=== PATIENT | female | born 1950 | race Caucasian/White ===

== ENCOUNTER 2021-09-26 11:04 | Day surgery (SDC) | payer OTHER ==
[2021-09-22 14:07] LABS: Absolute Lymphocytes (CBC) 3.2 K/uL (0.7-4.9); Basophils % 0.4 % (0-1.3); Hematocrit 32.3 % (36.0-45.0); Lymphocytes % 38.6 % (15.3-44.8); RBC Red Blood Cell Count 3.66 M/uL (3.86-4.86)
[2021-09-22 14:28] LABS: Albumin 3.7 g/dL (3.4-5.0); Bilirubin Direct 0.1 mg/dL (0-0.2); Bilirubin Total 0.3 mg/dL (0.2-1.0); Potassium 4.1 mmol/L (3.5-5.1); Protein, Total 7.4 g/dL (6.4-8.2)
--- NOTE | 2021-09-22 14:33 | RAD REPORT ---
EXAM DESCRIPTION: RAD - Chest Pa And Lat (2 Views) - 09/22/2021 2:15 pm CLINICAL HISTORY: PREOP, pending cholecystectomy COMPARISON: None TECHNIQUE: Frontal and lateral views of the chest were obtained. FINDINGS: The lungs are clear of a suspicious mass or infiltrate. Calcified granuloma seen in the la teral left upper lung field. No hilar mass or lymphadenopathy seen. Granulomas also seen in the media l left base. Trachea is midline. Heart size is normal and central vasculature is within normal limi ts. No pleural effusion or pneumothorax seen. No acute bony finding noted. No aortic abnormality. IMPRESSION: No acute cardiopulmonary process.
[2021-09-26] MEDS ORDERED: Ringers Lactate 1,000 ML IV ONE (11:23)
[2021-09-26] MEDS ORDERED: CEFOXITIN/NS 1gm 1 GM/50 ML BAG ONE (11:24)
[2021-09-26] MEDS ORDERED: ACETAMINOPHEN 500 MG TAB ONE (11:47)
[2021-09-26] MEDS ORDERED: CELECOXIB 100 MG CAPSULE ONE (11:47)
[2021-09-26] MEDS ORDERED: propofoL 200 MG/20 ML VIAL IV ONE ×2 (12:38→13:10)
[2021-09-26] MEDS ORDERED: ROCURONIUM 50 MG/5 ML VIAL IV ONE ×2 (12:38→13:10)
[2021-09-26] MEDS ORDERED: FENTANYL CITR 100 MCG/2 ML ONE ×2 (12:38→13:09)
[2021-09-26] MEDS ORDERED: dexAMETHasone 4 MG/ML VIAL ONE (12:39)
[2021-09-26] MEDS ORDERED: LIDOCAINE 2% MPF 5 ML VIAL ONE (12:39)
[2021-09-26] MEDS ORDERED: ONDANSETRON 4 MG/2 ML VIAL ONE (12:39)
[2021-09-26] MEDS ORDERED: MIDAZOLAM HCL 2 MG/2 ML INJ ONE (13:09)
[2021-09-26] MEDS ORDERED: LIDOCAINE 1% MPF 2 ML AMPULE ONE (13:09)
[2021-09-26] MEDS ORDERED: BUPIVACAINE 0.5% Inj,MDV 50 mL VIAL ONE (13:29)
[2021-09-26] MEDS ORDERED: GLYCOPYRROLATE 0.2 MG/ML SYR ONE (14:24)
[2021-09-26] MEDS ORDERED: NEOSTIGMINE 1 MG/ML -5 ML ONE (14:25)
[2021-09-26] MEDS ORDERED: Mastisol Adhesive Liq ONE (14:33)
--- NOTE | 2021-09-26 14:33 | P.BOP ---
Preoperative diagnosis: Acute cholecystitis, sympt cholelithiasis, RUQ abd pain Postoperative diagnosis: same Primary procedure: Laparoscopic cholecystectomy Estimated blood loss: <10cc Specimen: gb Findings: as above Anesthesia: General Transferred to: Recovery Room Condition: Good
[2021-09-26] MEDS: HYDROMORPHONE HCL 1 MG/ML INJ ONE ×2 (15:03→15:08)
[2021-09-26] MEDS ORDERED: ONDANSETRON 4 MG (ODT) TAB PO ONE (16:20)
[2021-09-26] MEDS ORDERED: ONDANSETRON 4 MG (ODT) TAB ONE (16:25)
[2021-09-26 16:51] VITALS: BP 125/83; TEMP 97.6; O2SAT 99
--- NOTE | 2021-09-27 13:27 | OP ---
Date of Procedure: 09/26/2021 Surgeon: Job Bajwa MD Preoperative Diagnoses: Acute cholecystitis, symptomatic cholelithiasis, right upper quadrant abdomi nal pain. Postoperative Diagnoses: Acute cholecystitis, symptomatic cholelithiasis, right upper quadrant abdom inal pain. Procedure: Laparoscopic cholecystectomy. Estimated Blood Loss: Less than 10 cc. Specimen: Gallbladder. Anesthesia: General plus local. Indication: This is the case of a female, who comes to us with above diagnoses. Fully explained the benefits, alternatives, and risks of laparoscopic possible open cholecystectomy, which include, but not limited to infection, bleeding, damage to adjacent structures, anesthesia complication, choledoch olithiasis, bile leak, pancreatitis, MT, and even . She also understands this may not relieve a ny symptoms. She might need more than one surgical intervention. She understood, signed a consent. Procedure In Detail: The patient was brought to the operating room and placed in supine position. A nesthesia was done without complication. Abdominal area was prepped and draped in usual sterile fash ion. Marcaine 0.5% was injected for local anesthetic followed by sharp incision of the skin in the i nfraumbilical region. Incision was carried down to fascia, which was opened under direct vision. Pe ritoneum was encountered, opened under direct vision. Vicryl #1 placed inside the fascia. Eda tr ocar was carefully introduced. Pneumoperitoneum was obtained. I placed 1 trocar and the 5 mm trocar in the epigastric area. From that, I used Endo Татьяна connected to Bovie cauterizer since the patie nt has multiple adhesions in that area and had to remove adhesions in order for me to be able to see the gallbladder. When we had adhesions removed, we were able to put 2 more trocars, 5 mm each one of them in the right upper quadrant under direct visualization. This allowed me to put a grasper in th e fundus of the gallbladder, another grasper in the infundibulum, retracting the gallbladder in the i nferolateral fashion, exposing the triangle of Calot and obtaining critical view. Cystic duct and cy stic artery were clearly isolated, freed circumferentially and a connection between those and the gal lbladder was clearly identified. I proceeded to ligate those by using at least 3 clips proximal, 1 c lip distal, ligation in middle. Same was done with the cystic artery. No bile leak, no bleeding. T he gallbladder was removed from liver using Bovie cauterizer and removed from abdominal cavity using EndoCatch through the umbilical incision. The area was inspected once again. No bile leak, no bleed ing. The area of adhesions was also intact with no bleeding. At that moment, I proceeded to remove the trocars under direct vision. Deflated the pneumoperitoneum. Closed the fascia with #1 Vicryl. Irrigated subcutaneous tissue, closed that with 3-0 chromic and skin in a subcuticular fashion with 3 -0 chromic and Steri-Strips on top. Sponge count and instrument counts correct. The patient tolerat ed the procedure well. The patient was sent to recovery in stable condition. CHRIS/CHAD Voice ID: [id number] Report ID: [id number]
--- NOTE | 2021-09-27 13:39 | DS ---
Date of Discharge: 09/26/2021 Diagnoses: Acute cholecystitis, symptomatic cholelithiasis, right upper quadrant abdominal pain. Procedure: Laparoscopic cholecystectomy. Disposition: Home. Activity: As tolerated. No heavy lifting. Plan: Follow up in my office in 1 week. Call for appointment at [phone]. Keep area dry for 48 denzel rs, then may shower. Keep Steri-Strips intact. Medications: See orders. CHRIS/MODAnabella Voice ID: [id number] Report ID: [id number]
== END 2021-09-26 16:48 | disposition home or self-care (01) ==
LOC: OR 11:04
PROVIDERS: ATTEND Surgery
PROC: 0FT44ZZ Resection of Gallbladder, Percutaneous Endoscopic Approach (ICD-10-PCS; principal; 2021-09-26 12:45)
DX: K80.10 Calculus of gallbladder with chronic cholecystitis without obstruction (principal); R10.11 Right upper quadrant pain; Z20.822 Contact with and (suspected) exposure to COVID-19
CPT/HCPCS: 93005; 85025; 80048; 36415; 82150; 80076; 88304; 83690; 71046; 47562; U0003; J2704; J1100; J3010; J1170; J2710; J7120; J0694; J2405; J2250

== ENCOUNTER 2024-01-31 21:56 | Inpatient (IN) | payer OTHER ==
--- OUTSIDE RECORDS SUMMARY | 2024-01-31 22:00 | XMS REPORT | Continuity of Care Document ---
Author Name Unknown Address [address] [facility] [address] [place] [address] [facility] Address [address] [facility] [address] [place] [address] Care Team Providers Care Developer Automatic Name Role Phone Andrade Longo Attending Clinician Unavailable Sandra Johnson Attending Clinician Unavailable Physician, No Primary or Family Admitting Clinic pat Unavailable Sandra Johnson Admitting Clinician Unavailable Payers Payer Name Policy Type Policy Number Effective Date Expirati on Date Source Allergies, Adverse Reactions, Alerts Allergy Name Allergy Type Status Severity Reaction(s) Onset Date Inactive Date Treating Clinician Comments Source No Known Allergie s DA Active U 01-03 00:00: 00 [facility] No Known Allergie s DA Active U 01-03 00:00: 00 [facility] Procedures Procedure Date / Time Performed Performing Clinicia n Source [id number] 2021-01-05 00:00:00 RASSA [facility] [id number] 2021-01-05 00:00:00 ALDMO [facility] Encounters Start Date/Time End Date/Time Encounter Type Admission Type Attending Clinicians Care Facility Care Department Encounter ID Source 2021-01-09 10:05:18 Inpatient EM Andrade Longo [facility] [id number] [facility] 2023-04-26 12:00:00 2023-04-26 12:00:00 Outpatient Sandra Perez [facility] [id number] [facility] 2022-04-25 12:00:00 2022-04-25 12:00:00 Outpatient Sandra Perez [facility] [id number] [facility] 2021-04-21 12:00:00 2021-04-21 12:00:00 Outpatient Sandra Perez [facility] [id number] [facility] 2021-02-23 05:17:00 2021-02-23 05:17:00 Inpatient Andrade Salas [facility] [id number] [facility] 2020-04-05 12:00:00 2020-04-05 12:00:00 Outpatient Sandra Perez [facility] [id number] [facility] Results Test Description Test Time Test Comments Results Result Co mments Source BASIC METABOLIC [id number] 11:34:00* Test Item Value Reference Range Interpretation Comme nts SODIUM (test code = NA) 140 mEq/L 134-147 N POTASSIUM (test code = K) 4.2 mEq/L 3.4-5.0 N CHLORIDE (test code = CL) 104 mEq/L 100-108 N CARBON DIOXIDE (test code = CO2) 31 mEq/l 21-33 N ANION GAP (test code = GAP) 9 0-20 N GLUCOSE (test code = GLU) 93 mg/dL 70-110 N BLOOD UREA NITROGEN (test code = BUN) 10 mg/dL 7-18 N GLOMERULAR FILTRATION RATE (test code = GFR) 61.9 70-80 L Units of measure = ml/min/1.73 m2 CREATININE (test code = CREAT) 0.9 mg/dL 0.6-1.3 N CALCIUM (test code = CA) 10.0 mg/dL 8.0-10.5 N PROTHROMBIN [id number] 11:33:00* Test Item Value Reference Range Interpretation Comme nts PROTHROMBIN TIME PATIENT (test code = PTP) 15.6 SECONDS 9.3-12.9 H INTERNATIONAL NORMAL RATIO (test code = INR) 1.4 0.8-1.2 H TARGET INR BY INDICATION Indication INR1. Prophylaxis of venous thrombosis 2.0 - 3.0 (orthopedic surgery), Prophylaxis of venous thrombosis (other than high-risk surgery), Treatment of Deep Vein Thrombosis/Pulmonary Embolism, Prevention of systemic embolism - Tissue heart valves, Acute Myocardial Infarction (to prevent systemic embolism), Valvular heart disease, Atrial Fibrillation, Bileaflet mechanical valve in aortic position.2. Mechanical prosthetic valves (high risk), 2.5 - 3.5 Presence of Lupus Anticoagulant or Antiphospholipid Antibodies, Prevention of systemic embolism - Acute Myocardial Infarction (to prevent recurrent infarct). CBC W/AUTO [id number] 11:21:00* Test Item Value Reference Range Interpretation Comme nts WHITE BLOOD CELL (test code = WBC) 7.2 x10 3/uL 4.5-11.0 N RED BLOOD CELL (test code = RBC) 3.80 x10 6/uL 3.54-5.02 N HEMOGLOBIN (test code = HGB) 11.2 g/dL 11.0-15.0 N HEMATOCRIT (test code = HCT) 35.6 % 33.0-45.0 N MEAN CELL VOLUME (test code = MCV) 93.7 fL 81.0-99.0 N MEAN CELL HGB (test code = MCH) 29.5 pg 27.0-33.0 N MEAN CELL HGB CONCETRATION (test code = MCHC) 31.5 g/dL 33.0-37.0 L RED CELL DISTRIBUTION WIDTH CV (test code = RDW) 12.8 % 11.5-14.5 N RED CELL DISTRIBUTION WIDTH SD (test code = RDW-SD) 44.3 fL 37.0-54.0 N PLATELET COUNT (test code = PLT) 242 x10 3/uL 150-400 N MEAN PLATELET VOLUME (test c ode = MPV) 8.6 fL 7.0-9.0 N NEUTROPHIL % (test code = NT%) 55.2 % 56.0-77.0 L IMMATURE GRANULOCYTE % (test code = IG%) 0.4 % 0.0-2.0 N LYMPHOCYTE % (test code = LY%) 34.3 % 14.0-32.0 H MONOCYTE % (test code = MO%) 7.9 % 4.8-9.0 N EOSINOPHIL % (test code = EO%) 1.9 % 0.3-3.7 N BASOPHIL % (test code = BA%) 0.3 % 0.0-2.0 N NUCLEATED RBC % (test code = NRBC%) 0.0 % 0-0 N NEUTROPHIL # (test code = NT#) 3.96 x10 3/uL 2.0-7.6 N IMMATURE GRANULOCYTE # (test code = IG#) 0.03 x10 3/uL 0.00-0.03 N LYMPHOCYTE # (test code = LY#) 2.46 x10 3/uL 1.0-3.8 N MONOCYTE # (test code = MO#) 0.57 x10 3/uL 0.1-0.8 N EOSINOPHIL # (test code = EO#) 0.14 x10 3/uL 0.0-0.2 N BASOPHIL # (test code = BA#) 0.02 x10 3/uL 0.0-0.2 N NUCLEATED RBC # (test code = NRBC#) 0.00 x10 3/uL 0.0-0.1 N MANUAL DIFF REQUIRED (test c ode = MDIFF) NO CBC W/AUTO [id number] 10:08:00* Test Item Value Reference Range Interpretation Comme nts WHITE BLOOD CELL (test code = WBC) 10.5 x10 3/uL 4.5-11.0 N RED BLOOD CELL (test code = RBC) 3.21 x10 6/uL 3.54-5.02 L HEMOGLOBIN (test code = HGB) 9.7 g/dL 11.0-15.0 L HEMATOCRIT (test code = HCT) 29.5 % 33.0-45.0 L MEAN CELL VOLUME (test code = MCV) 91.9 fL 81.0-99.0 N MEAN CELL HGB (test code = MCH) 30.2 pg 27.0-33.0 N MEAN CELL HGB CONCETRATION (test code = MCHC) 32.9 g/dL 33.0-37.0 L RED CELL DISTRIBUTION WIDTH CV (test code = RDW) 12.7 % 11.5-14.5 N RED CELL DISTRIBUTION WIDTH SD (test code = RDW-SD) 43.0 fL 37.0-54.0 N PLATELET COUNT (test code = PLT) 195 x10 3/uL 150-400 N MEAN PLATELET VOLUME (test c ode = MPV) 8.6 fL 7.0-9.0 N NEUTROPHIL % (test code = NT%) 71.9 % 56.0-77.0 N IMMATURE GRANULOCYTE % (test code = IG%) 0.4 % 0.0-2.0 N LYMPHOCYTE % (test code = LY%) 20.7 % 14.0-32.0 N MONOCYTE % (test code = MO%) 6.4 % 4.8-9.0 N EOSINOPHIL % (test code = EO%) 0.4 % 0.3-3.7 N BASOPHIL % (test code = BA%) 0.2 % 0.0-2.0 N NUCLEATED RBC % (test code = NRBC%) 0.0 % 0-0 N NEUTROPHIL # (test code = NT#) 7.57 x10 3/uL 2.0-7.6 N IMMATURE GRANULOCYTE # (test code = IG#) 0.04 x10 3/uL 0.00-0.03 H LYMPHOCYTE # (test code = LY#) 2.18 x10 3/uL 1.0-3.8 N MONOCYTE # (test code = MO#) 0.67 x10 3/uL 0.1-0.8 N EOSINOPHIL # (test code = EO#) 0.04 x10 3/uL 0.0-0.2 N BASOPHIL # (test code = BA#) 0.02 x10 3/uL 0.0-0.2 N NUCLEATED RBC # (test code = NRBC#) 0.00 x10 3/uL 0.0-0.1 N MANUAL DIFF REQUIRED (test c ode = MDIFF) NO BASIC METABOLIC [id number] 09:48:00* Test Item Value Reference Range Interpretation Comme nts SODIUM (test code = NA) 133 mEq/L 134-147 L POTASSIUM (test code = K) 3.7 mEq/L 3.4-5.0 N CHLORIDE (test code = CL) 101 mEq/L 100-108 N CARBON DIOXIDE (test code = CO2) 27 mEq/l 21-33 N ANION GAP (test code = GAP) 9 0-20 N GLUCOSE (test code = GLU) 147 mg/dL 70-110 H BLOOD UREA NITROGEN (test code = BUN) 10 mg/dL 7-18 N GLOMERULAR FILTRATION RATE (test code = GFR) 71.1 80-90 L Units of measure = ml/min/1.73 m2 CREATININE (test code = CREAT) 0.8 mg/dL 0.6-1.3 N CALCIUM (test code = CA) 8.7 mg/dL 8.0-10.5 N - XR CHEST 1 [id number] 09:36:00 [facility] : 1950 Sex: F FAX: Vicki Gilliland [phone] [place]: St: ADM FAX: Thao Jonas MD [phone] FAX: Sandra Caban MD [phone] FAX: Andrade Obrien MD [phone] Name: MADELIN PIERRE [facility] : 1950 Age/S: 70/F [address] [place] [address] Unit #: [id number] Loc: G.3343 [place] [address] Phys: Vicki Gilliland [facility] Acct: [id number] Dis Date: Status: ADM IN PHONE #: [phone] Exam Date: 01/06 FAX #: [phone] Reason: POST WATCHMAN EXAMS: CPT CODE: [id number] XR CHEST 1 V [id number] HISTORY:POST WATCHMAN COMPARISON:January 03, 2021 Frontal film of the chest performed at 0514 on January 06, 2021 demonstrates a watch measuring device for atrial fibrillation in left atrial region. Heart size is normal. Lung saravia are clear. No evidence of pneumonia or congestive failure isnoted. Calcified granulomas are present in the left lung. IMPRESSION: No evidence of pneumonia or congestive failure is seen. at 0936 Reported and signed by: Hernan Pham M.D. CC: Vicki Gilliland; Thao Guerrero MD; Sandra Johnson M.D.; Andrade Longo MD Technologist: Nohemy Núñez, RT(R); Bee Dos Santos RT(R) Trnscrd Date/Time/By: 01/06/2021 (0936) : By: Leonid Orig Print D/T: S: 01/06/2021 (0914) PAGE 1 Signed ReportCBC W/AUTO [id number] 09:31:00* Test Item Value Reference Range Interpretation Comme nts WHITE BLOOD CELL (test code = WBC) x10 3/uL 4.5-11.0 RED BLOOD CELL (test code = RBC) x10 6/uL 3.54-5.02 HEMOGLOBIN (test code = HGB) g/dL 11.0-15.0 HEMATOCRIT (test code = HCT) % 33.0-45.0 MEAN CELL VOLUME (test code = MCV) fL 81.0-99.0 MEAN CELL HGB (test code = MCH) pg 27.0-33.0 MEAN CELL HGB CONCETRATION ( test code = MCHC) g/dL 33.0-37.0 RED CELL DISTRIBUTION WIDTH CV (test code = RDW) % 11.5-14.5 PLATELET COUNT (test code = PLT) 195 x10 3/uL 150-400 N NEUTROPHIL % (test code = NT%) % 56.0-77.0 LYMPHOCYTE % (test code = LY%) % 14.0-32.0 NEUTROPHIL # (test code = NT#) x10 3/uL 2.0-7.6 LYMPHOCYTE # (test code = LY#) x10 3/uL 1.0-3.8 MANUAL DIFF REQUIRED (test c ode = MDIFF) [id number] 15:20:00* Test Item Value Reference Range Interpretation Comme nts ACT-ISTAT (test code = ACTI) 296 SEC 74-137 H Performed by cer clementina extrusion press operator at [facility] Novel Coronavirus 2019 [id number] 21:42:00* Test Item Value Reference Range Interpretation Comme nts Novel Coronavirus 2019 Inhouse (test code = COVNONPUI) Negative Negative Positive resul ts are indicative of the presence ycZNAU-MiD-3 RNA, clinical correlation with patient historyand other diagnostic information is necessary to determinepatient infection status. Positive results do not rule outbacterial infection or co-infection with other viruses. Negative results do not preclude SARS-CoV-2 infection andshould not be used as the sole basis for patient managementdecisions. Negative results must be combined with otherclinical observations, patient history, and epidemiologicalinformation . Detection of SARS-CoV-2 RNA may be affected bysample collection methods, storage conditions, and/or stageof infection. Viral RNA mutations, vaccinations, antiviraltherapeutics, antibiotics, chemotherapeutic orimmunosuppressant drugs have not been evaluated for effectson detection. Results are for the identification of SARS-CoV-2 RNA usingthe [employer] M2000 System under the FDA Emergency UseAuthorization. The testing is performed by personneltrained in the procedures for the [employer]va M2000 moleculardiagnostic SARS-CoV-2 assay in vitro. - XR CHEST 2 [id number] 13:53:00 [facility] : 1950 Sex: F FAX: Sandra Caban MD [phone] [place]: St: PRE FAX: Y Andrade Longo MD [phone] ------ Name: MADELIN PIERRE [facility] : 1950 Age/S: 70/F [address] [place] [address] Unit #: [id number] Loc: [place] [address] Phys: Andrade Longo MD Acct: [id number] Dis Date: Status: PRE [facility] [place] PHONE #: [phone] Exam Date: 01/03/20211452 FAX #: [phone] Reason: PRE-OP WATCHMAN EXAMS: CPT CODE: [id number] XR CHEST 2 V 07764 CLINICAL HISTORY: PRE-OP WATCHMAN COMPARISON: NONE PA and lateral films of the chest demonstrate that heart size is normal. Lung saravia demonstrate no evidence of pneumonia or congestive failure. Calcified granulomas are present in the left lung. Regional skeletal structures d emonstrate no acute abnormality. IMPRESSION: No evidence of pneumonia or congestive failure is seen. at 1353 Reported and signed by: Hernan Pham M.D. CC: Sandra Johnson M.D.; Andrade Longo MD Technologist: RT Leticia(Sarah) Trnscrd Date/Time/By: 01/03/2021 (1728) : By: ChrisYOCj Orig Print D/T: S: 01/03/2021 (3938) PAGE 1 Signed ReportBASIC METABOLIC [id number] 12:36:00* Test Item Value Reference Range Interpretation Comme nts SODIUM (test code = NA) 139 mEq/L 134-147 N POTASSIUM (test code = K) 4.0 mEq/L 3.4-5.0 N CHLORIDE (test code = CL) 103 mEq/L 100-108 N CARBON DIOXIDE (test code = CO2) 28 mEq/l 21-33 N ANION GAP (test code = GAP) 12 0-20 N GLUCOSE (test code = GLU) 88 mg/dL 70-110 N BLOOD UREA NITROGEN (test code = BUN) 11 mg/dL 7-18 N GLOMERULAR FILTRATION RATE (test code = GFR) 62.1 80-90 L Units of measure = ml/min/1.73 m2 CREATININE (test code = CREAT) 0.9 mg/dL 0.6-1.3 N CALCIUM (test code = CA) 10.2 mg/dL 8.0-10.5 N [id number] 12:36:00* Test Item Value Reference Range Interpretation Comme nts PREALBUMIN (test code = PREALB) 22.6 mg/dL 16.0-40.0 N CBC W/AUTO [id number] 12:22:00* Test Item Value Reference Range Interpretation Comme nts WHITE BLOOD CELL (test code = WBC) 8.2 x10 3/uL 4.5-11.0 N RED BLOOD CELL (test code = RBC) 4.06 x10 6/uL 3.54-5.02 N HEMOGLOBIN (test code = HGB) 11.9 g/dL 11.0-15.0 N HEMATOCRIT (test code = HCT) 37.5 % 33.0-45.0 N MEAN CELL VOLUME (test code = MCV) 92.4 fL 81.0-99.0 N MEAN CELL HGB (test code = MCH) 29.3 pg 27.0-33.0 N MEAN CELL HGB CONCETRATION (test code = MCHC) 31.7 g/dL 33.0-37.0 L RED CELL DISTRIBUTION WIDTH CV (test code = RDW) 12.7 % 11.5-14.5 N RED CELL DISTRIBUTION WIDTH SD (test code = RDW-SD) 43.4 fL 37.0-54.0 N PLATELET COUNT (test code = PLT) 275 x10 3/uL 150-400 N MEAN PLATELET VOLUME (test c ode = MPV) 8.8 fL 7.0-9.0 N NEUTROPHIL % (test code = NT%) 52.9 % 56.0-77.0 L IMMATURE GRANULOCYTE % (test code = IG%) 0.2 % 0.0-2.0 N LYMPHOCYTE % (test code = LY%) 36.9 % 14.0-32.0 H MONOCYTE % (test code = MO%) 8.6 % 4.8-9.0 N EOSINOPHIL % (test code = EO%) 1.2 % 0.3-3.7 N BASOPHIL % (test code = BA%) 0.2 % 0.0-2.0 N NUCLEATED RBC % (test code = NRBC%) 0.0 % 0-0 N NEUTROPHIL # (test code = NT#) 4.30 x10 3/uL 2.0-7.6 N IMMATURE GRANULOCYTE # (test code = IG#) 0.02 x10 3/uL 0.00-0.03 N LYMPHOCYTE # (test code = LY#) 3.01 x10 3/uL 1.0-3.8 N MONOCYTE # (test code = MO#) 0.70 x10 3/uL 0.1-0.8 N EOSINOPHIL # (test code = EO#) 0.10 x10 3/uL 0.0-0.2 N BASOPHIL # (test code = BA#) 0.02 x10 3/uL 0.0-0.2 N NUCLEATED RBC # (test code = NRBC#) 0.00 x10 3/uL 0.0-0.1 N MANUAL DIFF REQUIRED (test c ode = MDIFF) NO PROTHROMBIN [id number] 12:19:00* Test Item Value Reference Range Interpretation Comme nts PROTHROMBIN TIME PATIENT (test code = PTP) 14.3 SECONDS 9.3-12.9 H INTERNATIONAL NORMAL RATIO (test code = INR) 1.3 0.8-1.2 H TARGET INR BY INDICATION Indication INR1. Prophylaxis of venous thrombosis 2.0 - 3.0 (orthopedic surgery), Prophylaxis of venous thrombosis (other than high-risk surgery), Treatment of Deep Vein Thrombosis/Pulmonary Embolism, Prevention of systemic embolism - Tissue heart valves, Acute Myocardial Infarction (to prevent systemic embolism), Valvular heart disease, Atrial Fibrillation, Bileaflet mechanical valve in aortic position.2. Mechanical prosthetic valves (high risk), 2.5 - 3.5 Presence of Lupus Anticoagulant or Antiphospholipid Antibodies, Prevention of systemic embolism - Acute Myocardial Infarction (to prevent recurrent infarct). CBC W/AUTO [id number] 12:17:00* Test Item Value Reference Range Interpretation Comme nts WHITE BLOOD CELL (test code = WBC) x10 3/uL 4.5-11.0 RED BLOOD CELL (test code = RBC) x10 6/uL 3.54-5.02 HEMOGLOBIN (test code = HGB) 11.9 g/dL 11.0-15.0 N HEMATOCRIT (test code = HCT) 37.5 % 33.0-45.0 N MEAN CELL VOLUME (test code = MCV) fL 81.0-99.0 MEAN CELL HGB (test code = MCH) pg 27.0-33.0 MEAN CELL HGB CONCETRATION ( test code = MCHC) g/dL 33.0-37.0 RED CELL DISTRIBUTION WIDTH CV (test code = RDW) % 11.5-14.5 PLATELET COUNT (test code = PLT) 275 x10 3/uL 150-400 N NEUTROPHIL % (test code = NT%) % 56.0-77.0 LYMPHOCYTE % (test code = LY%) % 14.0-32.0 NEUTROPHIL # (test code = NT#) x10 3/uL 2.0-7.6 LYMPHOCYTE # (test code = LY#) x10 3/uL 1.0-3.8 MANUAL DIFF REQUIRED (test c ode = MDIFF) Notes Date/Time Note Provider Source 2021-03-09 12:42:00 [id number] gBrhasQhZNMGVVxDjgOVomiBrcFUs bNQ24geSgj8GkUiFGtZHiuq/zET8DFk24j9881-80-69T91:4 2:[id number] [place] [id number] PATIENT NAME: MADELIN PIERRE ADMIT DATE: 02/23/21ACCOUNT NO: [id number] ROOM NO: AGE: 71 REPORT TYPE: eTRANSESOPHAGEAL ECHO REPORT SEX: F ADMITTING PHYSICIAN: ATTENDING PHYSICIAN:Andrade Longo MD *[address] [address]Iwehc: [phone]: [phone] Transesophageal Echocardiogram for Watchman Patient: Madelin Pierreudy Date: 02/23/2021 BP: Location: NALLELYRN: [id number] : 1950 Age: 71 Height: 64 in / 162.6 cmAccession#: [id number] Gender: F Weight: 174.6 lb / 79.4 kgBMI/BSA: 30 kg/m 2 / 1.92 m 2 *Ordering Physician: * Andrade Longo *Interpreting Physician: * Donta Zafar MD*Water Systems Engineer: * Meena Manzano Indications: POST WATCHMAN. Study data: Transesophageal Echocardiogram for Watchman. Consent: Therisks, benefits, and alternatives to the procedure and sedation wereexplained to the patient and informed consent was obtained. Procedure:Initial setup: The patient was brought to the laboratory in the fastingstate.Intravenous access was obtained. Surface ECG leads, blood pressuremeasurements, and pulse oximetric signals were monitored. Sedation. Deepsedation was administered by anesthesiology staff. Transesophagealechocardiography was performed. Topical anesthesia was obtained usingbenzocaine spray. A transesophageal probe was inserted by theanesthesiologist. Patient status: Outpatient. Patient room number: OP. Study status: Routine. Study completion: The patient tolerated theprocedure well. There were no complications. PATIENT NAME: MADELIN PIERRE Findings Left ventricle: The cavity size is normal. Systolic function is normal.Left atrium: Post Watchman: There is no evidence of residual flowaround the Watchman occluder device.Mitral valve: There is mild regurgitation.Tricuspid valve: There is trivial regurgitation. Conclusions Summary: 1. Left ventricle: The cavity size is normal. Systolic function is normal.2. Left atrium: Post Watchman: There is no evidence of residual flow around the Watchman occluder device.3. Mitral valve: There is mild regurgitation. Prepared and electronically signed by Donta Zafar MD03/09/2021 12:42 at 1243 PATIENT NAME: MADELIN PIERRE [id number]:42:00G.[id number] ilable for patient [id number]:43:20 [facility] 2021-01-06 13:02:00 [id number] ndt2v+Iq4tsZdLyhgk8U1ZIqqWj+0 QSRl4jbDLLZBWQ/nlLs9jwmQljKJAHAXyF0517-02-68O40:0 2:00 [facility] ([facility])Discharge SummaryREPORT#:[id number] REPORT STATUS: SignedDATE:01/06/21 TIME: 1302 PATIENT: MADELIN PIERRE UNIT #: [id number]#: [id number] [address] [birth year] AGE: 71 SEX: F ATTEND: Thao Guerrero [facility] AUTHOR: Vicki Gilliland * ALL edits or amendments must be made on the electronic/computer document * General InformationDischarge date: 01/06/21Hospital course:Madelin Pierre is a 71-year-old female with a past medical history that is significant for paroxysmal atrial fibrillation, hypertension, iron deficiency anemia, who was admitted for watchman device implantation. Patient chads vasc score calculated at 3. Patient is not a good candidate for long-term anticoagulant therapy secondary to persistent anemia. Patient however may tolerate short-term anticoagulation therapy. Patient therefore had a watchman with the implantation of a 27 mm watchman flex device via the left atrial appendage. Patient tolerated procedure without any postop complications. Patient did well overnight, and repeat echo did not show a pericardial effusion. Patient therefore is stable to be discharged to home for outpatient follow-up. Post watchman discharge instruction given to the patient who verbalized understanding Med Rec PCPPCP:PCP: No Primary or Family Physician Med RecDischarge meds:Continue taking these medications:OMEPRAZOLE ER (PriLOSEC) 40 MG CAP.DR 40 MILLIGRAM ORAL DAILY. LISINOPRIL/HCTZ (ZESTORETIC 10/12.5 MG) 10 MG-12.5 MG TAB 1 TABLET ORAL DAILY. APIXABAN (ELIQUIS) 5 MG TAB 5 MILLIGRAM ORAL TWICE DAILY. METOPROLOL SUCC XL (TOPROL XL) 25 MG TAB.SR.24H 25 MILLIGRAM ORAL DAILY. LEVOTHYROXINE (SYNTHROID) 50 MCG TAB 50 MICROGRAM ORAL DAILY. MULTIVITAMIN (MULTIPLE VITAMIN) 1 TAB TAB 1 TABLET ORAL DAILY. CALCIUM CARBONATE (CALTRATE 600 MG) 600 MG (1,500 MG) TAB 600 MILLIGRAM ORAL DAILY. CHOLECALCIFEROL (VITAMIN D3) (VITAMIN D3) 5,000 UNIT TAB 5,000 UNITS ORAL DAILY. ASCORBIC ACID (VITAMIN C) 500 MG TAB 500 MILLIGRAM ORAL DAILY. OMEGA-3 FATTY ACIDS/FISH OIL (OMEGA 3 1,000 MG SOFTGEL) 300 MG-1,000 MG CAP 1,000 MILLIGRAM ORAL DAILY. MAGNESIUM OXIDE (MAG-OXIDE) 400 MG TAB 400 MILLIGRAM ORAL DAILY. CRANBERRY EXTRACT (CRANBERRY EXTRACT) 300 MG TAB 300 MILLIGRAM ORAL DAILY. ObjectiveVS/I OLast Documented: Result Date Time Pulse Ox 94 01/06 1052 B/P 105/67 01/06 1052 B/P Mean 79.3 01/06 1052 O2 Delivery Room air 01/06 1052 Temp 36.9 01/06 1052 Pulse 59 01/06 1052 Resp 19 01/06 1052 O2 Flow Rate 7 01/05 1600 PATIENT WEIGHT: Weight (lb): 175Weight (oz): 5.87Weight (kg): 79.545 General appearance: alert, awake, orientedCardiovascular: irregular rhythm, irregularly irregularRespiratory: clear to auscultation, no distressExtremities: moves all, no edema-all extremities Assess/PlanProblem List/A P: 1. Paroxysmal atrial fibrillation Free Text A P:-Paroxysmal Atrial fibrillationPatient with paroxysmal atrial fibrillation, chads vasc score of 3 and intolerance to long-term anticoagulation due to severe anemia Patient is s/p successful implantation of a 27 mm watchman flex device in the left atrial appendagePatient tolerated the procedure without any postop complicationsNo thrombus was identified in the pre-and Intra-Op TEEPatient did well overnight and is currently hemodynamically stable.Right groin suture removed by this EXTRUSION PRESS OPERATOR. no infection, bleeding, or hematoma. Dermabond applied and intact.Post watchman discharge instructions provided to the patientPatient is to follow-up with her PCP and recreation coordinator in 1 to 2 weeksAlso follow-up with recreation coordinator for the 45-day LATRICE after which follow-up with Dr Longo for anticoagulation recommendationPatient to continue eliqus until the 45-day TEEIf the 45 day LATRICE shows a well-seated watchman device with no thrombus/leaks then eliquis will be discontinued and patient will be initiated on aspirin and Plavix at that timeDuration of aspirin is lifelongDuration of Plavix is 6 months post 45 day TEEPost Watchman discharge instructions /handout given to the patient who verbalized understanding of the instructions given and patient is notified to report any complaints of chest pain, shortness of breath lightheadedness or dizziness to her recreation coordinator. Care Time Spent:The total glxy-ab-ldxb or floor/unit time for this encounter was [] minutes Discharge Instructions PCP)( Discharge to: Home/Self Care Discharge InstructionsAdditional Discharge Routines: Senior Cost Analyst Follow-Up)( Diet: Resume Home Diet/Feeds at 1415 RPT #:[id number] OF REPORTDSDischarge qbxizxs2397-68-46B49:02:00G.[id number] ailable for patient pucrLJQDJYNQQVEZOK2336-69-41J26:16:01 [facility] 2021-01-06 13:02:00 [id number] 38T/FM2At0UT27gOXWyr3mlm3+M3W +eCX5ewV0iKZefFnXtO6B5rrwtAsHWFKOj1280-27-22P95:0 2:00 [facility]vineDischarge SummaryREPORT#:[id number] REPORT STATUS: SignedDATE:01/06/21 TIME: 1302 PATIENT: MADELIN PIERRE UNIT #: [id number]#: [id number] [address] [birth year] AGE: 71 SEX: F ATTEND: Thao Guerrero [facility] AUTHOR: Vicki Gilliland * ALL edits or amendments must be made on the electronic/computer document * Vicki Gilliland 01/06/21 1302:General InformationDischarge date: 01/06/21Hospital course:Madelin Pierre is a 71-year-old female with a past medical history that is significant for paroxysmal atrial fibrillation, hypertension, iron deficiency anemia, who was admitted for watchman device implantation. Patient chads vasc score calculated at 3. Patient is not a good candidate for long-term anticoagulant therapy secondary to persistent anemia. Patient however may tolerate short-term anticoagulation therapy. Patient therefore had a watchman with the implantation of a 27 mm watchman flex device via the left atrial appendage. Patient tolerated procedure without any postop complications. Patient did well overnight, and repeat echo did not show a pericardial effusion. Patient therefore is stable to be discharged to home for outpatient follow-up. Post watchman discharge instruction given to the patient who verbalized understanding Med Rec PCPPCP:PCP: No Primary or Family Physician Med RecDischarge meds:Continue taking these medications:OMEPRAZOLE ER (PriLOSEC) 40 MG CAP.DR 40 MILLIGRAM ORAL DAILY. LISINOPRIL/HCTZ (ZESTORETIC 10/12.5 MG) 10 MG-12.5 MG TAB 1 TABLET ORAL DAILY. APIXABAN (ELIQUIS) 5 MG TAB 5 MILLIGRAM ORAL TWICE DAILY. METOPROLOL SUCC XL (TOPROL XL) 25 MG TAB.SR.24H 25 MILLIGRAM ORAL DAILY. LEVOTHYROXINE (SYNTHROID) 50 MCG TAB 50 MICROGRAM ORAL DAILY. MULTIVITAMIN (MULTIPLE VITAMIN) 1 TAB TAB 1 TABLET ORAL DAILY. CALCIUM CARBONATE (CALTRATE 600 MG) 600 MG (1,500 MG) TAB 600 MILLIGRAM ORAL DAILY. CHOLECALCIFEROL (VITAMIN D3) (VITAMIN D3) 5,000 UNIT TAB 5,000 UNITS ORAL DAILY. ASCORBIC ACID (VITAMIN C) 500 MG TAB 500 MILLIGRAM ORAL DAILY. OMEGA-3 FATTY ACIDS/FISH OIL (OMEGA 3 1,000 MG SOFTGEL) 300 MG-1,000 MG CAP 1,000 MILLIGRAM ORAL DAILY. MAGNESIUM OXIDE (MAG-OXIDE) 400 MG TAB 400 MILLIGRAM ORAL DAILY. CRANBERRY EXTRACT (CRANBERRY EXTRACT) 300 MG TAB 300 MILLIGRAM ORAL DAILY. ObjectiveVS/I OLast Documented: Result Date Time Pulse Ox 94 01/06 1052 B/P 105/67 01/06 1052 B/P Mean 79.3 01/06 1052 O2 Delivery Room air 01/06 1052 Temp 36.9 01/06 1052 Pulse 59 01/06 1052 Resp 19 01/06 1052 O2 Flow Rate 7 01/05 1600 PATIENT WEIGHT: Weight (lb): 175Weight (oz): 5.87Weight (kg): 79.545 General appearance: alert, awake, orientedCardiovascular: irregular rhythm, irregularly irregularRespiratory: clear to auscultation, no distressExtremities: moves all, no edema-all extremities Assess/PlanProblem List/A P: 1. Paroxysmal atrial fibrillation Free Text A P:-Paroxysmal Atrial fibrillationPatient with paroxysmal atrial fibrillation, chads vasc score of 3 and intolerance to long-term anticoagulation due to severe anemia Patient is s/p successful implantation of a 27 mm watchman flex device in the left atrial appendagePatient tolerated the procedure without any postop complicationsNo thrombus was identified in the pre-and Intra-Op TEEPatient did well overnight and is currently hemodynamically stable.Right groin suture removed by this EXTRUSION PRESS OPERATOR. no infection, bleeding, or hematoma. Dermabond applied and intact.Post watchman discharge instructions provided to the patientPatient is to follow-up with her PCP and recreation coordinator in 1 to 2 weeksAlso follow-up with recreation coordinator for the 45-day LATRICE after which follow-up with Dr Longo for anticoagulation recommendationPatient to continue eliqus until the 45-day TEEIf the 45 day LATRICE shows a well-seated watchman device with no thrombus/leaks then eliquis will be discontinued and patient will be initiated on aspirin and Plavix at that timeDuration of aspirin is lifelongDuration of Plavix is 6 months post 45 day TEEPost Watchman discharge instructions /handout given to the patient who verbalized understanding of the instructions given and patient is notified to report any complaints of chest pain, shortness of breath lightheadedness or dizziness to her recreation coordinator. Care Time Spent:The total gmal-yb-aqux or floor/unit time for this encounter was [] minutes Discharge Instructions PCP)( Discharge to: Home/Self Care Discharge InstructionsAdditional Discharge Routines: Senior Cost Analyst Follow-Up)( Diet: Resume Home Diet/Feeds Thao Guerrero 03/02/21 1145:Attestations Physician AttestationAgree w/findings plan:I have seen and examined the pt, I Agree with the findings and plan as documented by EXTRUSION PRESS OPERATOR Vicki Gilliland. at 1415 at 1147 [facility] #:[id number] OF REPORTDSDischarge ncjxlsm6740-91-40M31:02:00G.[id number] ailable for patient pjqrDIVVHDLYVJKULV8257-34-62Y38:47:25 [facility] 2021-01-06 10:41:00 [id number] tCW27fdSqHmDXzF1wGMdhtW70cAvh HUB7UQlsZztJf/NhDQU229RtZ+1xvfvucZ2742-99-72H68:4 1:[id number] [place] [id number] PATIENT NAME: MADELIN PIERRE ADMIT DATE: 01/05/21ACCOUNT NO: [id number] ROOM NO: [id number] AGE: 70 REPORT TYPE: eECHOCARDIOGRAM REPORT SEX: F ADMITTING PHYSICIAN:Thao Guerrero MD ATTENDING PHYSICIAN:Thao Guerrero MD *[address], [place] [address]Lofgl: [phone]: [phone] Limited Transthoracic Echocardiogram Patient: Madelin PierreeStudy Date: 01/06/2021 BP: 170 / 70 [id number] 1950 Age: 70 Height: 62 in / 157.5 cmAccession#: [id number] Gender: F Weight: 190.1 lb / 86.4 kgBMI/BSA: 34.8 kg/m 2 / 1.98 m 2 *Ordering Physician: * Priti Wise NP *Interpreting Physician: * Thao Guerrero MD*Water Systems Engineer: * Ellen Kapadia Indications: POST WATCHMAN. Study data: Transthoracic echocardiogram, limited study. Procedure:Transthoracic echocardiography was performed. Images were obtained usinga [employer] cardiac ultrasound machine. Limited 2D and limited spectralDoppler. Location: Bedside. Patient status: Inpatient. Patient roomnumber: 3350. Study status: Routine. Findings Left ventricle: The cavity size is normal. Wall thickness is normal.The estimated ejection fraction is 55-59%.Left atrium: The atrium is dilated.Mitral valve: There is no significant regurgitation.Tricuspid valve: There is no significant regurgitation.PATIENT NAME: MADELIN PIERRE Pericardium: There is no pericardial effusion. Measurements Left ventricle Value Ref BRAYAN, LAX 4.6 cm 3.8 - 5.2 ESD, LAX 2.4 cm 2.2 - 3.5 ESD/bsa, LAX 1.2 cm/m 2 1.3 - 2.1 FS, LAX 47 % 27 - 45 PW, ED 0.9 cm 0.6 - 0.9 IVS/PW, ED 0.97 --------- EF 78 % 54 - 74 EF, [facility] Teich. 85 % >=55 Ventricular septum Value Ref IVS, ED 0.9 cm 0.6 - 0.9 Conclusions Summary: 1. Left ventricle: The cavity size is normal. Wall thickness is normal. The estimated ejection fraction is 55-59%.2. Left atrium: The atrium is dilated. Prepared and electronically signed by Thao Guerrero MD01/06/2021 10:41 at 1041 PATIENT NAME: MADELIN PIERRE :41:0 0G.[id number] for patient epglAZZPAUWLITMSIM9238-90-09C73:42:05 [facility] 2021-01-05 19:46:00 FEbtbuxleng10216344v NhJ1fQkFgA/srAd0gufR6Zyv2imFo Uq8sJrar4xAmavlRPbqTEmE3Lbv4DeNtuS0282-42-01G91:4 6:00 [facility] ([facility])History Physical - AdultREPORT#:[id number] REPORT STATUS: SignedDATE:01/05/21 TIME: 1945 PATIENT: MADELIN PIERRE UNIT #: [id number]#: [id number] [address] [birth year] AGE: 71 SEX: F ATTEND: Thao Guerrero [facility] AUTHOR: Thao Guerrero MD * ALL edits or amendments must be made on the electronic/computer document * History of Present Illness HPIChief complaint:AF is here for WatchmanPCP:PCP: No Primary or Family Physician HPI:This is a 71-year-old female with a past medical history that is significant forparoxysmal atrial fibrillation, hypertension, iron deficiency anemia, who is here for watchman device implantation. Patient chads vasc score calculated at 3. Patient is not a good candidate for long-term anticoagulant therapy secondary to persistent anemia. Patient thought to tolerate short-term anticoagulation therapy. Pt denies CP, SOB, or orthopnea. HistoryPast medical history:Reports: Atrial fibrillation. Family history:Denies: CAD < 40 yrs old. Smoking status: Smoking status for patients 13 years old or older: Never Smoker Medication/Allergy-Vaccine HxMedications:Home Medications:Medication Dose/Rte/Freq Days Qty Entered Last Max Daily Dose Reviewed OMEPRAZOLE ER (PriLOSEC) 40 MG PO DAILY 01/03/21 01/05/21rength: 40 MG CAP. 1249 1142 LISINOPRIL/HCTZ 1 TAB PO DAILY 01/03/21 01/05/21 (ZESTORETIC 10/12.5 MG) 1249 1142Strength: 10 MG-12.5 MGTAB APIXABAN (ELIQUIS) 5 MG PO BID 01/03/21 01/05/21rength: 5 MG TAB 1250 1142 METOPROLOL SUCC XL 25 MG PO DAILY 01/03/21 01/05/21 (TOPROL XL) 1251 1142Strength: 25 MGTAB.SR.24H LEVOTHYROXINE 50 MCG PO DAILY 01/03/21 01/05/21 (SYNTHROID) 1342 1142Strength: 50 MCG TAB MULTIVITAMIN 1 TAB PO DAILY 01/03/21 01/05/21 (MULTIPLE VITAMIN) 1343 1142Strength: 1 TAB TAB CALCIUM CARBONATE 600 MG PO DAILY 01/03/21 01/05/21 (CALTRATE 600 MG) 1343 1142Strength: 600 MG (1,500MG) TAB CHOLECALCIFEROL 5,000 UNITS PO DAILY 01/03/21 01/05/21 (VITAMIN D3) 1343 1142 (VITAMIN D3)Strength: 5,000 UNIT TAB ASCORBIC ACID (VITAMIN 500 MG PO DAILY 01/03/21 01/05/21C)Strength: 500 MG TAB 1343 1142 OMEGA-3 FATTY 1,000 MG PO DAILY 01/03/21 01/05/21 ACIDS/FISH OIL 1344 1142 (OMEGA 3 1,000 MG SOFTGEL)Strength: 300 MG-1,000MG CAP MAGNESIUM OXIDE 400 MG PO DAILY 01/03/21 01/05/21 (MAG-OXIDE) 1344 1142Strength: 400 MG TAB CRANBERRY EXTRACT 300 MG PO DAILY 01/03/21 01/05/21rength: 300 MG TAB 1344 1142 Current Hospital Medications:Anti-Infective Agents Sig/David Start time Last Medication Dose Route Stop Time Status Admin Cefazolin Sodium 0 .STK-MED ONE 01/05 1420 DC 01/05 (KEFZOL OR ANCEF) .ROUTE 1428 Autonomic Drugs Sig/David Start time Last Medication Dose Route Stop Time Status Admin Phenylephrine HCl 0 .STK-MED ONE 01/05 1408 DC (JAYDEN-SYNEPHRINE I-CHATA 1000MCG/NS 10ML INJ) Succinylcholine 0 .STK-MED ONE 01/05 1408 DC Chloride IV (QUELICIN FLIPTOP) Rocuronium Ira 0 .STK-MED ONE 01/05 1233 DC (ZEMURON) IV Blood Formation,Coagulation Sig/David Start time Last Medication Dose Route Stop Time Status Admin Apixaban 5 MG BID 01/06 0900 AC (ELIQUIS 5MG TABLET) PO 02/04 1633 Apixaban 5 MG BID 01/05 2100 DC (ELIQUIS 5MG TABLET) PO 02/04 205 Heparin Sodium 0 .STK-MED ONE 01/05 1420 DC 01/05 (HEPARIN SODIUM) .ROUTE 1428 Heparin Sodium/ 1,000 ML .STK-MED ONE 01/05 1420 DC 01/05 Sodium Chloride IV 1428 (HEPARIN 2,000 UNITS/ NS 1,000mL) Cardiovascular Drugs Sig/David Start time Last Medication Dose Route Stop Time Status Admin Lisinopril 10 MG DAILY 01/06 0900 DC (ZESTRIL) PO 02/05 0859 Hydrochlorothiazide 12.5 MG (HYDRODIURIL) Lisinopril 10 MG DAILY 01/06 0900 AC (ZESTRIL) PO 02/05 0859 Metoprolol Succinate 25 MG DAILY 01/06 0900 AC (TOPROL XL) PO 02/05 0859 Lidocaine HCl 0 .STK-MED ONE 01/05 1118 DC (XYLOCAINE) .ROUTE Hydralazine HCl 2 MG PACU Q10MIN PRN PRN 01/05 0945 DC (APRESOLINE) IV 01/05 1745 Labetalol HCl 5 MG PACU Q10MIN PRN PRN 01/05 0945 DC (LABETALOL HCL) IV 01/05 1745 Lidocaine HCl 2 ML PREOP ONCALL 01/03 1415 DC (LIDOCAINE HCL/PF) LOCAL 02/02 2359 Lidocaine HCl 2 ML PREOP ONCALL 01/03 1415 DC (LIDOCAINE HCL/PF) LOCAL 02/02 2359 Central Nervous System Agents Sig/David Start time LastMedication Dose Route Stop Time Status AdminAcetaminophen 650 MG Q4H PRN PRN 01/05 1615 AC (TYLENOL) PO 02/04 1614Fentanyl Citrate 0 .STK-MED ONE 01/05 1233 DC (SUBLIMAZE) .ROUTEMidazolam HCl 0 .STK-MED ONE 01/05 1233 DC (VERSED) .ROUTEPropofol 20 ML .STK-MED ONE 01/05 1233 DC(DIPRIVAN 200MG/20ML IVINJECTION)Fentanyl Citrate 100 MCG PACU Q10MIN PRN PRN 01/05 0945 DC (SUBLIMAZE) IV 01/05 1745Fentanyl Citrate 50 MCG PACU Q10MIN PRN PRN 01/05 0945 DC (SUBLIMAZE) IV 01/05 1745Hydrocodone Bitart/ 1 TAB PACU ONCE 01/05 0945 DCAcetaminophen PO 01/05 1745 (NORCO 5/325)Hydromorphone HCl 1 MG PACU Q10MIN PRN PRN 01/05 0945 DC (DILAUDID) IV 01/05 1745Hydromorphone HCl 0.5 MG PACU Q5MIN PRN PRN 01/05 0945 DC (DILAUDID) IV 01/05 1745Meperidine HCl 12.5 MG PACU ONCE PRN 01/05 0945 DC (DEMEROL 50MG/ML) IV 01/05 1745Morphine Sulfate 2 MG PACU Q10MIN PRN PRN 01/05 0945 DC (morphine SULFATE) IV 01/05 1745Tramadol HCl 50 MG PACU ONCE 01/05 0945 DC (ULTRAM) PO 01/05 1745Acetaminophen 1,000 MG PREOP ONCALL 01/03 1415 DC (TYLENOL EXTRA PO 02/02 2359STRENGTH) Electrolytic, Caloric, And Alexis Sig/David Start time Last Medication Dose Route Stop Time Status Admin Hydrochlorothiazide 12.5 MG DAILY 01/06 0900 AC (HYDRODIURIL) PO 02/05 0859 Sodium Chloride 1,000 ML ONCE ONE 01/05 1615 AC (SODIUM CHLORIDE IV 01/06 0534 0.9%) Sodium Chloride 5 ML ASDIR PRN 01/05 1615 AC (SODIUM CHLORIDE) IV 02/04 1614 Sodium Chloride 10 ML ASDIR PRN 01/05 1615 AC (SODIUM CHLORIDE) IV 02/04 1614 Sodium Chloride 250 ML ASDIR PRN 01/05 1615 AC (SODIUM CHLORIDE IV 02/04 1614 0.9%) Lactated Ringer's 1,000 ML PREOP ONCALL 01/03 1415 DC (LACTATED RINGERS) IV 02/02 2359 Sodium Chloride 500 ML PREOP ONCALL 01/03 1415 DC (SODIUM CHLORIDE IV 02/02 2359 0.9%) Sodium Chloride 500 ML PREOP ONCALL 01/03 1415 DC (SODIUM CHLORIDE IV 02/02 2359 0.9%) Sodium Chloride 1,000 ML PREOP ONCALL 01/03 1415 DC (SODIUM CHLORIDE IV 02/02 2359 0.9%) Sodium Chloride 5 ML ASDIR PRN 01/03 1415 AC (SODIUM CHLORIDE) IV 02/02 1414 Sodium Chloride 10 ML ASDIR PRN 01/03 1415 AC (SODIUM CHLORIDE) IV 02/02 1414 Sodium Chloride 250 ML ASDIR PRN 01/03 1415 AC (SODIUM CHLORIDE IV 02/02 141 0.9%) Gastrointestinal Drugs Sig/David Start time Last Medication Dose Route Stop Time Status Admin Pantoprazole 40 MG DAILY 01/06 0900 AC (PROTONIX) PO 02/05 0859 Ondansetron HCl 4 MG Q6H PRN PRN 01/05 1615 AC (ZOFRAN) IV 02/04 1614 Ondansetron HCl 4 MG PACU ONCE PRN 01/05 0945 DC (ZOFRAN) IV 01/05 1745 Hormones And Synthetic Substit Sig/David Start time Last Medication Dose Route Stop Time Status Admin Levothyroxine Sodium 50 MCG DAILY 0600 01/06 0600 AC (Synthroid) PO 02/05 0559 Insulin Human Lispro 0 PACU ONCE PRN 01/05 0945 DC (HUMALOG) SUBQ 01/05 1745 Local Anesthetics (Parenteral) Sig/David Start time Last Medication Dose Route Stop Time Status Admin Bupivacaine HCl 0 .STK-MED ONE 01/05 1420 DC 01/05 (MARCAINE 0.5%) .ROUTE 1428 Ropivacaine 150 MG ASDIR PRN 01/05 0945 DC (NAROPIN 0.5% 150 MG/ LOCAL 02/04 0944 30mL) Allergies:Coded Allergies:No Known Allergies (01/03/21) Review of SystemsAdditional notes:As per HPI otherwise -10 system point Physical ExamVS/I OVital Signs: Date Time Temp Pulse Resp B/P B/P Pulse O2 O2 Flow FiO2 Mean Ox Delivery Rate 01/05 1821 98.2 63 18 138/82 101.0 98 Room air 01/05 1645 60 18 110/59 96 Room air 01/05 1600 98.3 64 16 146/65 100 Simple 7 mask 01/05 1555 98.3 66 16 128/57 100 Simple 7 mask 01/05 1137 97.6 68 18 159/68 PATIENT WEIGHT: Weight (lb): 175Weight (oz): 5.87Weight (kg): 79.545 General appearance: alert, awake, orientedHead/Eyes: atraumatic, PERRLACardiovascular: normal heart soundsRespiratory: clear to auscultationNeuro/UNDERWRITER MORTGAGE LOAN: alert, oriented X 3, normal speechPsychiatry: normal affect, normal judgment/insight ResultsFindings/Data:Laboratory Tests: 01/05 1515 Coagulation Activated Coag Time (74 - 137 SEC) 296 H Diagnosis, Assessment Plan Free Text DxA P NotesFree Text DxA P Notes:1. Atrial fibrillation: Continue anticoagulation, patient deemed not a good candidate for long-term anticoagulation hence she is here for watchman device. Patient will be observed overnight and will be discharged tomorrow. at 1153 RPT #:[id number] OF REPORTHPHistory and physical zrmfrttfulh6463-34-39P53:46:00G.[id number] AVAvailable for patient wgczDGLKDCVEYVWTSP3883-71-31R95:53:27 [facility] 2021-01-05 16:00:00 AQchrkrtuyu05381769z kkMnCe4abd4uK6j3MXv9yvLaXvNJg /CYDHr2W+vzn0GE1UeXz7Z3sFZbRxY0M/Q6382-28-46W70:0 0:[id number] [address] PATIENT NAME: MADELIN PIERRE ADMIT DATE: 01/05/21ACCOUNT NO: [id number] [place] NO: [facility] [place] AGE: 71 REPORT TYPE: eELECTROCARDIOGRAM REPORT SEX: F ADMITTING PHYSICIAN:Thao Guerrero MD ATTENDING PHYSICIAN:Thao Guerrero MD Order:[id number] Reason : S/P WATCHMAN Test Date/Time Stamp:SunJan 05 2021 16:00:39Blood Pressure : / mmHGVent. Rate : 068 BPM Atrial Rate : 068 BPM P-R Int : 140 ms QRS Dur : 084 ms QT Int : 432 ms P-R-T Axes : 043 049 -04 degrees QTc Int : 459 ms Normal sinus rhythmLow voltage QRSNonspecific T wave abnormalityAbnormal ECGWhen compared with ECG of 03-JAN-2021 12:14,Significant changes have occurredConfirmed by MD GUERRERO MOLHAM ([id number]) on 02/13/2021 9:20:19 AM Referred By: Thao Guerrero Confirmed by:THAO GUERRERO MD at 0920 PATIENT NAME: MADELIN PIERRE .[id number] AVAvailable for patient oemcJKBKPLUNHUPGOJ6901-91-76T13:20:35 [facility] 2021-01-05 15:46:00 ITzytfodpsv98360333O GzqtNFVsSf33locu4dGGGAU/bsXF1 ot1QkXBUPDetP+ZeHJ4kyqMSqzW0qLTtMi1890-65-51K25:4 6:[id number] [address] PATIENT NAME: MADELIN PIERRE ADMIT DATE: 01/05/21ACCOUNT NO: [id number] ROOM NO: [facility] [place] AGE: 70 REPORT TYPE: OPERATIVE REPORT SEX: F ADMITTING PHYSICIAN:Thao Guerrero MD ATTENDING PHYSICIAN:Thao Guerrero MD OPERATION DATE: 01/05/2021 PREOPERATIVE DIAGNOSIS: POSTOPERATIVE DIAGNOSIS: PROCEDURE PERFORMED: Left atrial appendage closure using 27 mm Watchman FLXclosure device. SURGEON: NARCOTICS AND VICE DETECTIVE: ANESTHESIA: INDICATIONS: Atrial fibrillation with high CHADS-VASc score, high risk ofstroke CHADS-VASc score more than 3 with chronic anemia, intolerant of theanticoagulants. ACCESS: Right femoral vein, 16-Turkmen closed with a gbyxbf-ji-jmjkh suture. COMPLICATIONS: None. BLEEDING: Less than 10 mL. COLOR STRIPPER: Andraed Longo MD. DESCRIPTION OF PROCEDURE: After risks, benefits, and alternatives wereexplained, the patient agreed to proceed and signed informed consent, thepatient was brought into the cardiac catheterization laboratory, prepped anddraped in the usual sterile fashion. General anesthesia was applied and a TEEprobe was inserted by anesthesia team. A pre-procedure LATRICE was obtained and nothrombus was found. Then we took a micropuncture kit, accessed the rightfemoral vein under the ultrasound guidance and inserted the 8-Turkmen sheath andthen upgraded to a 16-Turkmen Cook sheath and partial dose of heparin was givenand then we took SL1 transseptal sheath into the SVC and with the Snocap needleinside, we descended into the interatrial septum under the guidance offluoroscopy and transesophageal echo and then in the low mid position,transseptal puncture was performed and advanced the SL1 sheath into the leftatrium, measured LA pressure at 14 mmHg. Subsequently, took ProTrack wire intothe left atrium and exchanged for a Watchman double curve sheath and then took apigtail through the Watchman sheath into the left atrial appendage and navigatedthe Watchman sheath into the appendage and then appendage angiogram was done, PATIENT NAME: MADELIN PIERRE which showed an ostium of 23 mm. Then, we took a 27-mm Watchman FLX deviceprepped in the usual sterile fashion and then took it under vessel flush andafter a good bleed back from the sheath into the appendage and then the devicewas deployed successfully without complications. Past criteria systems all metand as such, the device was released in position and the sheath and the Cooksheath were removed and gnjlzn-rp-gqkap suture was applied at the access withgood hemostasis. CONCLUSION: Successful left atrial appendage closure using 27 mm Watchman FLXclosure device. PLAN: Admit overnight. Obtain echo and chest x-ray in the morning, thendischarge to home with no complications. Dictated By: Andrade Longo MD WT: OP:AIMEE/RENATA/NTSDD: 01/05/2021 15:46:36DT: 01/05/2021 17:37:46Conf#: [id number]/DID#: [id number] Authenticated by Andrade Longo MD On 01/11/2021 11:52:34 AM at 1152 PATIENT NAME: MADELIN PIERRE yhsoui5145-70-48R11:37:00G.[id number] lable for patient mxufMIRIKRKDPFCYYH2512-26-04P87:53:05 [facility] 2021-01-03 12:14:00 [id number] ygSZcnZyt7EGtgSi+bL0Rb19cwp9a Mnv8bUayRELrDW33MWKqdFdqOJV0siloGI6257-58-92Y78:1 4:[id number] [place] [address] PATIENT NAME: MADELIN PIERRE ADMIT DATE: ACCOUNT NO: [id number] ROOM NO: AGE: 70 REPORT TYPE: eELECTROCARDIOGRAM REPORT SEX: F ADMITTING PHYSICIAN: ATTENDING PHYSICIAN:Andrade Longo MD Order:[id number] Reason : PRE-OP WATCHMAN Test Date/Time Stamp:SunJan 03 2021 12:14:11Blood Pressure : / mmHGVent. Rate : 067 BPM Atrial Rate : 067 BPM P-R Int : 128 ms QRS Dur : 084 ms QT Int : 414 ms P-R-T Axes : 012 068 035 degrees QTc Int : 437 ms Normal sinus rhythmNonspecific ST abnormalityAbnormal ECGNo previous ECGs availableConfirmed by MARIA DOLORES MORFIN MD ([id number]) on 01/03/2021 2:06:59 PM Referred By: Andrade Longo Confirmed by:MARIA DOLORES MORFIN MD at 1407 PATIENT NAME: MADELIN PIERRE .[id number] AVAvailable for patient jaslHTXSHTCWWXYVFN1131-63-07J53:07:31 [facility]
[2024-01-31] MEDS ORDERED: dilTIAZem HCL 25 MG/5 ML VIAL IV ONE ×2 (22:29→23:38)
[2024-01-31] MEDS ORDERED: ALBUTEROL 2.5 MG/3 ML NEB SOL ONE (22:43)
[2024-01-31] MEDS ORDERED: IPRATROPIUM BROM 0.5MG/2.5ML ONE (22:43)
[2024-01-31 22:46] LABS: Absolute Basophils 0.1 K/uL (0-0.5); Absolute Eosinophils 0.2 K/uL (0-0.5); Absolute Monocytes 0.5 K/uL (0.1-1.3); Absolute Neutrophil 6.1 K/uL (1.8-8.0); Basophils % 1.1 % (0-1.3); Eosinophils % 1.7 % (0-4.4); Hematocrit 31.4 % (36.0-45.0); Hemoglobin 10.7 g/dL (12.0-15.0); Lymphocytes % 30.1 % (15.3-44.8); MCH 30.8 pg (27.0-35.0); MCV 90.6 fL (80-100); MPV 7.4 fL (7.6-11.3); Monocytes % 5.3 % (3.3-12.3); Neutrophils % 61.8 % (41.7-73.7); Nucleated Red Blood Cells % 0.1 % (0-0); Platelets 243 thou/uL (152-406); RBC Red Blood Cell Count 3.47 M/uL (3.86-4.86); Red Cell Distribution Width 13.5 % (12.1-15.2)
[2024-01-31 23:04] LABS: Anion Gap 9.6 mEq/L (5.0-15.0); Potassium 3.6 mEq/L (3.5-5.1); Troponin High Sensitivity 10.9 pg/mL (<58.9)
[2024-01-31] MEDS: DILTIAZEM INJ 125 MG/25 ML 125 MG in NA CHLORIDE 0.9% 100 ML IV SCH (23:20)
--- NOTE | 2024-01-31 23:41 | EDPHYS ---
Physician Documentation [facility] Name: Madelin Pierre Age: 74 yrs Sex: Female : 1950 Arrival Date: 01/31/2024 Time: 21:56 Bed 6 Private MD: ED Physician Emerson Long HPI: 01/30 22:27 This 74 yrs old Female presents to ER via Unassigned with complaints of High ec2 Blood Pressure, AFIB,HIGH HEART RATE. 22:27 Patient arrives today for evaluation of shortness of breath. Patient reports that she ec2 is feeling some wheeziness. Patient reports persistent cough is been ongoing for greater than a year. Patient reports that she has no vomiting or diarrhea, no fevers or chills. Does report a history of atrial fibrillation, previous watchman, no blood thinners.. Historical: - Allergies: 22:32 Lisinopril; jb4 - PMHx: 22:32 HTN; jb4 - PSHx: 22:32 watchmen; jb4 - Immunization history:: Adult Immunizations up to date. - Infectious Disease History:: Denies. Denies. - Social history:: Smoking status: Patient denies any tobacco usage or history of. ROS: 22:27 Constitutional: as per hpi ec2 Exam: 22:27 Constitutional: GEN: NAD Head: atraumatic Eyes: EOMI Ears: External ears are ec2 normal. CV: regular rate LUNGS: no respiratory distress, scattered wheezes noted. ABD: non-distended SKIN: no evidence of rashes MSK: no evidence of trauma NEURO: moves all extremities equally Vital Signs: 22:22 BP 142 / 98; Pulse 154; Resp 18; Pulse Ox 98% on R/A; Weight 77.11 kg; Height 5 ft. 4 jb4 in. ; Pain 0/10; 22:39 BP 154 / 90; Pulse 150; Resp 19; Temp 98.2; Pulse Ox 88% on R/A; Pain 0/10; bm8 23:10 BP 123 / 85; Pulse 110; ec2 01/31 00:26 BP 145 / 115; Pulse 80; Resp 20; Temp 98.2; Pulse Ox 95% on R/A; Pain 0/10; bm8 01:17 BP 115 / 55; Pulse 88; Resp 20; Temp 98.7; Pulse Ox 94% on R/A; Pain 0/10; bm8 02:21 BP 104 / 79; Pulse 92; Resp 98; Temp 98.4; Pulse Ox 100% ; Pain 0/10; bm8 01/30 22:22 Body Mass Index 29.18 (77.11 kg, 162.56 cm) jb4 01/30 22:22 Pain Scale: Adult jb4 22:39 Pain Scale: Adult bm8 01/31 00:26 Pain Scale: Adult bm8 01:17 Pain Scale: Adult bm8 02:21 Pain Scale: Adult bm8 Korin Coma Score: 01/30 22:39 Eye Response: spontaneous(4). Motor Response: obeys commands(6). Verbal Response: bm8 oriented(5). Total: 15. 01/31 00:26 Eye Response: spontaneous(4). Motor Response: obeys commands(6). Verbal Response: bm8 oriented(5). Total: 15. MDM: 01/30 22:21 Patient medically screened. ec2 22:27 Data reviewed: vital signs. ED course: Patient arrives today for evaluation of ec2 shortness of breath. Examination remarkable for scattered wheezes, tachycardia. Will obtain lab work, EKG, chest x-ray. EKG obtained, independently reviewed and interpreted by me, shows atrial fibrillation, rate of 154, no acute ST segment elevations. Will give the patient 10 mg of diltiazem.. 23:10 ED course: Metabolic profile shows slight hyponatremia, renal dysfunction with ec2 creatinine 1.03 and a GFR 57. CBC shows slight anemia, BNP elevated at 2200. On reassessment patient with improved heart rates in the 90s to 110s.. 23:14 ED course: Heart rates uptrending 110-120. Will give the patient additional bolus of 25 ec2 mg diltiazem.. 23:39 ED course: Will admit for A-fib with RVR requiring diltiazem drip. Will give the ec2 patient Lasix as well, patient with elevated BNP, cardiomegaly as well as some vascular congestion noted. Suspect component of volume overload.. 01/30 22:27 Order name: Basic Metabolic Panel; Complete Time: 23:10 ec2 01/30 22:27 Order name: CBC with Diff; Complete Time: 23:10 ec2 01/30 22:27 Order name: NT PRO-BNP; Complete Time: 23:10 ec2 01/30 22:27 Order name: Troponin HS; Complete Time: 23:10 ec2 01/31 00:50 Order name: Urinalysis w/ reflexes EDMS 01/31 00:50 Order name: CBC with Automated Diff EDMS 01/31 00:50 Order name: CBC with Automated Diff EDMS 01/31 00:50 Order name: Comprehensive Metabolic Panel EDMS 01/31 00:50 Order name: Comprehensive Metabolic Panel EDMS 01/31 00:50 Order name: Troponin High Sensitivity EDMS 01/31 00:50 Order name: Troponin High Sensitivity EDMS 01/31 00:50 Order name: Troponin High Sensitivity EDMS 01/31 00:50 Order name: Troponin High Sensitivity EDMS 01/30 22:27 Order name: XRAY Chest (1 view) ec2 01/30 22:27 Order name: EKG; Complete Time: 22:28 ec2 01/31 00:50 Order name: CONS Physician Consult EDMT 01/30 22:27 Order name: Cardiac monitoring; Complete Time: 22:31 ec2 01/30 22:27 Order name: EKG - Nurse/Tech; Complete Time: 22:31 ec2 01/30 22:27 Order name: IV Saline Lock; Complete Time: 22:31 ec2 01/30 22:27 Order name: Labs collected and sent; Complete Time: 22:31 ec2 01/30 22:27 Order name: O2 Per Protocol; Complete Time: 22:38 ec2 01/30 22:27 Order name: O2 Sat Monitoring; Complete Time: 22:31 ec2 Administered Medications: 22:38 Drug: Diltiazem IVP 10 mg IVP once; Over 2 minutes Route: IVP; Site: left antecubital; bm8 23:59 Follow up: Response: No adverse reaction bm8 22:49 Drug: DuoNeb Nebulize (3:1) (2.5 mg - 0.5 mg) 3 ml Nebulizer once Route: Nebulizer; bm8 23:59 Follow up: Response: No adverse reaction bm8 23:58 Drug: Diltiazem IVP 25 mg IVP once; Over 2 Minutes Route: IVP; Site: left antecubital; bm8 01/31 00:32 Follow up: Response: No adverse reaction bm8 00:21 Drug: Diltiazem IV 5 mg/hr IV at calculated rate See Administration Instructions; bm8 (standard dilution 125 mg diltiazem mixed in 125 mL NS; final concentration 1mg/mL). Recommended max rate 15 mg/hr; Titrate 5 mg/hr as often as every 15 minutes to achieve goal (see titration policy); Goal parameter HR less than 100 bpm Route: IV; Rate: calculated rate; Site: left antecubital; 01:20 Follow up: Response: No adverse reaction; IV Status: Infusion continued bm8 00:21 Drug: Furosemide IVP 20 mg IVP once; give over 2 minutes Route: IVP; Site: left bm8 antecubital; 01:19 Follow up: Response: No adverse reaction bm8 Disposition Summary: 01/31/24 23:41 Hospitalization Ordered Notes: Hospitalization Status: Inpatient Admission ec2 Provider: Gordon Valenzuela ec2 Condition: Stable ec2 Problem: an acute exacerbation ec2 Symptoms: have improved ec2 Bed/Room Type: Standard ec2 Location: Intensive Care Unit(02/01/24 16:42) Room Assignment: 5-(02/01/24 16:42) Diagnosis - Atrial Fibrillation with Rapid Ventricular Rate ec2 - Dyspnea, unspecified ec2 Forms: - Medication Reconciliation Form ec2 - SBAR form ec2 - Leadership Thank You Letter ec2 Critical care time excluding procedures: 01/30 23:15 Critical care time: Bedside Care: 30 minutes. Total time: 30 minutes ec2 Signatures: Dispatcher [employer] EDMS Kerrie Saldana RN RN Khang Winchester RN RN [facility] [place] Shireen Sanchez RN RN 1 Emerson Long MD MD ec2 Katlin Mendoza Brad, RN RN bm8 Corrections: (The following items were deleted from the chart) 22:30 22:27 ED course: Patient arrives today for evaluation of shortness of breath. ec2 Examination remarkable for scattered wheezes. Will obtain lab work, EKG, chest x-ray.. ec2 22:32 22:32 Allergies: No Known Allergies; jb4 carmen 01/31 00:13 01/30 23:41 ec2 [facility] [place] 01/31 00:30 01/30 23:41 Telemetry/MedSurg (Inpatient) ec2 ec2 01/31 00:30 00:13 209 jb4 ec2 01:33 00:30 Intensive Care Unit ec2 jb4 01:33 00:30 ec2 jb4 02:02 01:33 [facility] ER HOLD jb4 kmf 02:02 01:33 ERHOLD- jb4 kmf 02:24 02:02 Intensive Care Unit kmf kmf 02:24 02:02 5- kmf kmf 02:53 02:24 kmf jb4 16:42 02:24 [facility] ER HOLD kmf hb 16:42 02:53 ERHOLD- jb4 hb
--- NOTE | 2024-01-31 23:41 | ER ---
Nurse's Notes [facility] Name: Madelin Pierre Age: 74 yrs Sex: Female : 1950 Arrival Date: 01/31/2024 Time: 21:56 Bed 6 Private MD: Diagnosis: Atrial Fibrillation with Rapid Ventricular Rate;Dyspnea, unspecified Presentation: 01/30 22:22 Chief complaint: Patient states: A few hours ago. I started having SOB , my blood jb4 pressure went up and my heart rate was 157. Coronavirus screen: At this time, the client does not indicate any symptoms associated with coronavirus-19. Ebola Screen: No symptoms or risks identified at this time. Initial Sepsis Screen: Does the patient meet any 2 criteria? No. Patient's initial sepsis screen is negative. Does the patient have a suspected source of infection? No. Patient's initial sepsis screen is negative. Risk Assessment: Do you want to hurt yourself or someone else? Patient reports no desire to harm self or others. Onset of symptoms was January 31, 2024. Transition of care: patient was not received from another setting of care. 22:22 Method Of Arrival: Wheelchair jb4 22:22 Acuity: SHANIKA 2 jb4 Triage Assessment: 22:32 General: Appears in no apparent distress. uncomfortable, Behavior is calm, cooperative. jb4 Pain: Denies pain. Neuro: Level of Consciousness is awake, alert, obeys commands, Oriented to person, place, time, situation. Cardiovascular: Patient's skin is warm and dry. Respiratory: Reports shortness of breath on exertion Airway is patent Respiratory effort is even, unlabored, Respiratory pattern is regular, symmetrical. GI: No signs and/or symptoms were reported involving the gastrointestinal system. Derm: Skin is intact, Skin is pink, warm \T\ dry. Historical: - Allergies: 22:32 Lisinopril; jb4 - PMHx: 22:32 HTN; jb4 - PSHx: 22:32 watchmen; jb4 - Immunization history:: Adult Immunizations up to date. - Infectious Disease History:: Denies. Denies. - Social history:: Smoking status: Patient denies any tobacco usage or history of. Screenin:36 [facility] ED Fall Risk Assessment (Adult) History of falling in the last 3 months, ha1 including since admission No falls in past 3 months (0 pts) Confusion or Disorientation No (0 pts) Intoxicated or Sedated No (0 pts) Impaired Gait No (0 pts) Mobility Assist Device Used No (0 pt) Altered Elimination No (0 pt) Score/Fall Risk Level 0 - 2 = Low Risk Oriented to surroundings, Maintained a safe environment, Educated pt \T\ family on fall prevention, incl call for assistance when getting out of bed, Hourly rounding (assess needs \T\ fall precautionary measures) done. Abuse screen:. Nutritional screening: No deficits noted. Tuberculosis screening: No symptoms or risk factors identified. Assessment: 22:12 General: Appears uncomfortable, Behavior is calm, cooperative. Pain: Complains of pain ha1 in chest palpitations. Neuro: Level of Consciousness is awake, alert, obeys commands, Oriented to person, place, time, situation. Cardiovascular: Reports palpitations, Heart tones present Capillary refill < 3 seconds Patient's skin is warm and dry. Rhythm is atrial fibrillation. Respiratory: Airway is patent Respiratory effort is even, unlabored, Respiratory pattern is regular, symmetrical. GI: Abdomen is round non-distended. EENT: EENT: No signs and/or symptoms were reported regarding the EENT system. Derm: Skin is pink, warm \T\ dry. Musculoskeletal: Circulation, motion, and sensation intact. 22:39 Reassessment: Patient appears in no apparent distress at this time. Patient is alert, bm8 oriented x 3, equal unlabored respirations, skin warm/dry/pink. General: Appears in no apparent distress. uncomfortable, Behavior is calm, cooperative, appropriate for age. Pain: Denies pain. Pain: Denies pain. Neuro: No deficits noted. Level of Consciousness is awake, alert, obeys commands, Oriented to person, place, time, situation, Appropriate for age. Cardiovascular: Reports palpitations, shortness of breath, Heart tones present Capillary refill < 3 seconds Patient's skin is warm and dry. Rhythm is atrial fibrillation with rapid ventricular response. Respiratory: Airway is patent Respiratory effort is even, unlabored, Respiratory pattern is regular, symmetrical, Breath sounds with wheezes bilaterally. the patient has moderate shortness of breath. GI: No deficits noted. No signs and/or symptoms were reported involving the gastrointestinal system. : No deficits noted. No signs and/or symptoms were reported regarding the genitourinary system. EENT: No deficits noted. No signs and/or symptoms were reported regarding the EENT system. Derm: No deficits noted. No signs and/or symptoms reported regarding the dermatologic system. 01/31 00:26 Reassessment: Patient appears in no apparent distress at this time. Patient and/or bm8 family updated on plan of care and expected duration. Pain level reassessed. Patient is alert, oriented x 3, equal unlabored respirations, skin warm/dry/pink. General: Appears in no apparent distress. comfortable, Behavior is calm, cooperative, appropriate for age. Pain: Denies pain. Neuro: No deficits noted. Level of Consciousness is awake, alert, obeys commands, Oriented to person, place, time, situation, Appropriate for age. Cardiovascular: Reports palpitations, Heart tones S1 S2 present. Respiratory: Airway is patent Respiratory effort is even, unlabored, Respiratory pattern is regular, symmetrical. 01:17 Reassessment: Patient appears in no apparent distress at this time. Patient and/or bm8 family updated on plan of care and expected duration. Pain level reassessed. Patient is alert, oriented x 3, equal unlabored respirations, skin warm/dry/pink. pt states that she is going to try and get some rest. asked to have lights turned off. this nurse accommodated the request. Patient denies pain at this time. Patient states symptoms have improved. Vital Signs: 01/30 22:22 BP 142 / 98; Pulse 154; Resp 18; Pulse Ox 98% on R/A; Weight 77.11 kg; Height 5 ft. 4 jb4 in. ; Pain 0/10; 22:39 BP 154 / 90; Pulse 150; Resp 19; Temp 98.2; Pulse Ox 88% on R/A; Pain 0/10; bm8 23:10 BP 123 / 85; Pulse 110; ec2 01/31 00:26 BP 145 / 115; Pulse 80; Resp 20; Temp 98.2; Pulse Ox 95% on R/A; Pain 0/10; bm8 01:17 BP 115 / 55; Pulse 88; Resp 20; Temp 98.7; Pulse Ox 94% on R/A; Pain 0/10; bm8 02:21 BP 104 / 79; Pulse 92; Resp 98; Temp 98.4; Pulse Ox 100% ; Pain 0/10; bm8 01/30 22:22 Body Mass Index 29.18 (77.11 kg, 162.56 cm) jb4 01/30 22:22 Pain Scale: Adult jb4 22:39 Pain Scale: Adult bm8 19 00:26 Pain Scale: Adult bm8 01:17 Pain Scale: Adult bm8 02:21 Pain Scale: Adult bm8 Drayden Coma Score: 01/30 22:39 Eye Response: spontaneous(4). Motor Response: obeys commands(6). Verbal Response: bm8 oriented(5). Total: 15. 01/31 00:26 Eye Response: spontaneous(4). Motor Response: obeys commands(6). Verbal Response: bm8 oriented(5). Total: 15. ED Course: 01/30 21:58 Patient arrived in ED. ec2 22:03 Emerson Long MD is Attending Physician. ec2 22:12 Patient has correct armband on for positive identification. Placed in gown. Bed in low ha1 position. Call light in reach. Side rails up X 1. 22:30 Inserted saline lock: 20 gauge in left antecubital area, using aseptic technique. Blood ha1 collected. 22:32 Triage completed. jb4 22:32 Arm band placed on right wrist. jb4 22:37 Provided Education on: medication administration . ha1 22:38 Taiwo Falk, RN is Primary Nurse. bm8 22:39 Adult w/ patient. Client placed on continuous cardiac and pulse oximetry monitoring. bm8 NIBP monitoring applied. glass cleaning machine tender on. Pulse ox on. NIBP on. Door closed. Noise minimized. Visitors limited. Warm blanket given. Verbal reassurance given. 22:39 No provider procedures requiring assistance completed. Oxygen administration via nasal bm8 cannula \T\ 4L/min Response to oxygen therapy: symptoms improved. 22:41 Basic Metabolic Panel Sent. ha1 22:41 CBC with Diff Sent. ha1 22:41 NT PRO-BNP Sent. ha1 22:41 Troponin HS Sent. ha1 23:01 XRAY Chest (1 view) In Process Unspecified. EDMS 23:41 Gordon Valenzuela MD is Hospitalizing Provider. ec2 01/31 00:26 Client placed on continuous cardiac and pulse oximetry monitoring. NIBP monitoring bm8 applied. glass cleaning machine tender on. Pulse ox on. NIBP on. 00:26 Patient admitted, IV remains in place. bm8 00:55 Assisted to bedside commode. bm8 01:17 Door closed. Noise minimized. Visitors limited. Lights dimmed. Warm blanket given. bm8 Verbal reassurance given. Head of bed lowered. 04:46 Emerson Long MD is Attending Physician. ec2 08:47 Primary Nurse role handed off by Taiwo Falk, RN jl7 Administered Medications: 01/30 22:38 Drug: Diltiazem IVP 10 mg IVP once; Over 2 minutes Route: IVP; Site: left antecubital; bm8 23:59 Follow up: Response: No adverse reaction bm8 22:49 Drug: DuoNeb Nebulize (3:1) (2.5 mg - 0.5 mg) 3 ml Nebulizer once Route: Nebulizer; bm8 23:59 Follow up: Response: No adverse reaction bm8 23:58 Drug: Diltiazem IVP 25 mg IVP once; Over 2 Minutes Route: IVP; Site: left antecubital; bm8 01/31 00:32 Follow up: Response: No adverse reaction bm8 00:21 Drug: Diltiazem IV 5 mg/hr IV at calculated rate See Administration Instructions; bm8 (standard dilution 125 mg diltiazem mixed in 125 mL NS; final concentration 1mg/mL). Recommended max rate 15 mg/hr; Titrate 5 mg/hr as often as every 15 minutes to achieve goal (see titration policy); Goal parameter HR less than 100 bpm Route: IV; Rate: calculated rate; Site: left antecubital; 01:20 Follow up: Response: No adverse reaction; IV Status: Infusion continued bm8 00:21 Drug: Furosemide IVP 20 mg IVP once; give over 2 minutes Route: IVP; Site: left 8 antecubital; 01:19 Follow up: Response: No adverse reaction bm8 Medication: 01/30 22:36 VIS not applicable for this client. ha1 Outcome: 23:41 Decision to Hospitalize by Provider. ec2 01/31 00:26 Condition: stable bm8 Instructed on the need for admit, 02:24 Admitted to ER Hold. Please see [facility] for further documentation. bm8 17:29 Patient left the ED. iw Signatures: Dispatcher [employer] Neha Vitale, RN MELIDA iw Khang Winchester RN RN jb4 Elio Pearce RN RN jl7 Shireen Sanchez RN RN [email or web address] Emerson Long MD MD ec2 Taiwo Falk, RN RN bm8 Corrections: (The following items were deleted from the chart) 01/30 22:32 22:32 Allergies: No Known Allergies; jb4 jb4 01/31 02:24 00:26 Admitted to Med/surg accompanied by nurse, via wheelchair, room 209, with oxygen, bm8 with chart, bm8
[2024-01-31] MEDS: dilTIAZem HCL 25 MG/5 ML VIAL IV ONE (23:43)
[2024-01-31] MEDS ORDERED: NA CHLORIDE 0.9% 100 ML ONE (23:46)
[2024-01-31] MEDS ORDERED: FUROSEMIDE 20 MG/ 2ML VIAL ONE (23:46)
[2024-02-01] MEDS ORDERED: ALBUTEROL 2.5 MG/3 ML NEB SOL NEB PRN (00:44)
--- NOTE | 2024-02-01 00:52 | P.HP ---
Certification for Inpatient Patient admitted to: Inpatient With expected LOS: >2 Midnights Practitioner: I am a practitioner with admitting privileges, knowledge of patient current condition, hospital course, and medical plan of care. Services: Services provided to patient in accordance with Admission requirements found in Title 42 Section 412.3 of the Code of Federal Regulations Patient History Date of Service: 02/01/24 Reason for admission: Afib W RVR History of Present Illness: 74 yrs old Female with past medical history of hypertension, hyperlipidemia, hypothyroidism, history of atrial fibrillation status post watchman's procedure 3 years ago who came to the ER with high heart rate and generalized weakness and shortness of breath which has been going on for last 2 to 3 days and has been progressively getting worse today and was brought to ER. Patient denies any chest pain but complains of shortness of breath especially with minimal exertion. Has persistent cough which has been going on for the last 1 year. No expectoration. No nausea vomiting or diarrhea. Denies any fever or chills. Not on any blood thinners. Patient also complains of palpitation and her heart rate has been running high. Patient was assessed in the ER and was found to have atrial fibrillation with RVR and also possible CHF He was initially responded to Cardizem and was started on Cardizem drip and was admitted for further management Allergies No Known Allergies Allergy (Unverified 09/22/21 13:21) Home medications list reviewed: Yes Home Medications: Aspirin [Aspirin EC] 81 mg PO DAILY 09/22/21 Atorvastatin Calcium [Lipitor] 10 mg PO BEDTIME 09/22/21 Levothyroxine Sodium [Levothyroxine] 50 mcg PO DAILY 09/22/21 Lisinopril/Hydrochlorothiazide [Lisinopril-Hctz 10-12.5 mg Tab] 1 tab PO DAILY 09/22/21 Metoprolol Succinate 25 mg PO DAILY 09/22/21 Multivitamin 1 tab PO DAILY 09/22/21 Omeprazole [Prilosec] 40 mg PO DAILY 09/22/21 Codeine/APAP [Tylenol W/Codeine #3 tab] 1 tab PO Q4HP PRN #30 tab 09/26/21 Sulfamethoxazole/Trimethoprim [Bactrim Ds Tablet] 1 each PO BID #10 tablet - Past Medical/Surgical History Past Medical History: Reviewed- Non-Contributory -: Hypertension, atrial fibrillation, GERD, hyperlipidemia, hypothyroidism Past Surgical History: Reviewed- Non-Contributory -: History of watchman's procedure - Family History Family History: Reviewed- Non-Contributory - Social History Smoking Status: Never smoker Review of Systems 10-point ROS is otherwise unremarkable Physical Examination - Vital Signs Temperature: 98.2 F Blood Pressure: 116/76 Pulse: 110 Respirations: 18 Pulse Ox (%): 94 - Physical Exam General: Alert, Oriented x3, Cooperative, Mild distress HEENT: Atraumatic, Normocephalic Neck: Supple, No Thyromegaly, No LAD Respiratory: Clear to auscultation bilaterally, Normal air movement, Crackles/rales Cardiovascular: No rubs, Edema, Irregular heart rate/rhythm Capillary refill: <2 Seconds Gastrointestinal: Soft and benign, W/out hepatosplenomegaly, No tenderness Musculoskeletal: No clubbing, No swelling Integumentary: No rashes, No breakdown Neurological: Normal speech, Normal strength at 5/5 x4 extr, Cranial nerves 3-12 intact, Normal reflexes 2+, Normal affect Lymphatics: No axilla or inguinal lymphadenopathy - Studies Laboratory Data (last 24 hrs) 01/31/24 01/31/24 22:30 22:30 WBC 9.90 Hgb 10.7 L Hct 31.4 L Plt Count 243 Sodium 130 L Potassium 3.6 BUN 12 Creatinine 1.03 H Glucose 147 H Assessment and Plan - Problems (Diagnosis) (1) Atrial fibrillation with RVR Current Visit: Yes Status: Acute (2) CHF (congestive heart failure) Current Visit: Yes Status: Acute (3) Hypertension Current Visit: Yes Status: Acute Plan: A-fib with RVR Started on Cardizem initially Heart rate was controlled initially but went back with RVR Started on Cardizem drip Monitor closely on telemetry Patient has a history of watchman's procedure not on any blood thinners Will consult cardiology Will get an echocardiogram Acute on chronic CHF possibly combined systolic/diastolic Elevated BNP found Will add on mild diuretics Will obtain echocardiogram Cardiology evaluation Hypertension Continue home medications and diet Hydralazine as needed Hyponatremia Acute kidney injury Electrolytes monitor replace accordingly Renal parameters monitored Hypothyroidism Continue home medications GI/DVT prophylaxis Advanced directive Full Code Discharge Plan: Home Plan to discharge in: 48 Hours - Advance Directives Does patient have a Living Will: No Does patient have a Durable POA for Healthcare: No - Code Status/Comfort Care Code Status: Full Code Time Spent Managing Pts Care (In Minutes): 48
[2024-02-01] MEDS: IPRATROPIUM BROM 0.5MG/2.5ML NEB SCH ×2 (02:19→19:58)
[2024-02-01] MEDS ORDERED: CODEINE 30MG/APAP 300MG TAB PO PRN (05:13)
[2024-02-01] MEDS ORDERED: ACETAMINOPHEN 325 MG TABLET ONE ×3 (05:55→15:19)
[2024-02-01] MEDS: ACETAMINOPHEN 325 MG TABLET PO ONE (05:57)
[2024-02-01] MEDS: LEVOTHYROXINE SOD 0.05 MG TABLET PO SCH (06:30)
[2024-02-01] MEDS ORDERED: ASPIRIN EC 81 MG TAB PO ONE (07:42)
[2024-02-01] MEDS ORDERED: FUROSEMIDE 20 MG/ 2ML VIAL ONE (07:43)
[2024-02-01] MEDS ORDERED: ENOXAPARIN 40 MG/0.4 ML SQ ONE (07:43)
[2024-02-01] MEDS: METOPROLOL XL 25 MG TAB PO SCH (09:00)
[2024-02-01] MEDS: ENOXAPARIN 40 MG/0.4 ML SQ SCH (09:00)
[2024-02-01] MEDS: ASPIRIN EC 81 MG TAB PO SCH (09:00)
[2024-02-01] MEDS: FUROSEMIDE 20 MG/ 2ML VIAL IV SCH (09:00)
[2024-02-01] MEDS: ACETAMINOPHEN 325 MG TABLET PO PRN (10:36)
[2024-02-01 13:21] LABS: Specific Gravity 1.005 (1.005-1.030); Sqamous Epithelial <5 /HPF (None Seen); Urine Bacteria None Seen /HPF (<20); Urine Bilirubin NEGATIVE (Negative); Urine Blood Negative (Negative); Urine Clarity Clear (Clear); Urine Color Colorless (Yellow); Urine Culture Reflex Order NOT NEEDED; Urine Glucose NEGATIVE (Negative); Urine Ketones NEGATIVE (Negative); Urine Microscopic Reflex YN ORDER UMIC; Urine Mucus Slight /HPF (None Seen); Urine Nitrite NEGATIVE (Negative); Urine Protein NEGATIVE (Negative); Urine RBC <5 /HPF (None Seen); Urine Urobilinogen Normal (Normal); Urine WBC <5 /HPF (<5)
--- NOTE | 2024-02-01 18:08 | P.PN ---
Date of Service: 02/01/24 Patient seen and examined. She denies any complaint Heart rate improved but patient is still in A-fib. Currently on Cardizem drip. Cardiology input appreciated Cardizem drip discontinued, patient is placed on sotalol. Metoprolol discontinued. Monitor and optimize electrolytes. Serial EKG
[2024-02-01] MEDS: SOTALOL HCL 80 MG TAB PO SCH (18:20)
[2024-02-01] MEDS ORDERED: SOTALOL HCL 80 MG TAB ONE (18:20)
[2024-02-01] MEDS ORDERED: IPRATROPIUM BROM 0.5MG/2.5ML ONE (19:42)
--- NOTE | 2024-02-01 20:26 | CON ---
Date of Consultation: 02/01/2024 Reason For Consultation: Atrial fibrillation with rapid ventricular response. History Of Present Illness: 74-year-old female, history of hypertension, dyslipidemia, hypothyroidis m, atrial fibrillation, status post Watchman, and presented to the emergency room with shortness of b reath, palpitations, and progressive orthopnea and lower extremity edema, found to be in atrial fibri llation with rapid ventricular response. She was started on Cardizem drip and her heart rate went do wn and she is feeling much better. No chest pain now. Past Medical History: As outlined above in the HPI. Medications: Refer to reconciliation sheet for detailed list. Allergies: LISINOPRIL. Family History: No premature coronary artery disease or cancer. Social History: She does not smoke or drink. Does not use any drugs. Review of Systems: All systems reviewed and they were negative except as mentioned in the HPI. Physical Examination: Vital Signs: Reviewed. Head and Neck: Pupils are equal, reactive to light. Intact eye movements. No JVD. No cervical lym phadenopathy. Neck is supple. Thyroid is not enlarged. Lungs: Clear to auscultation bilaterally. No rhonchi, wheezing, or crackles. No accessory muscle u se. Heart: Irregularly irregular. No extra sounds. Abdomen: Soft, nontender. Bowel sounds positive. No organomegaly. No masses or hernia. No rigidi ty or rebound. Extremities: No edema, clubbing, or cyanosis. Intact pulses. Skin: No rash. No nodule. Neurologic: Alert, awake, oriented x3. No acute focal deficits appreciated. Investigations: BUN 12, creatinine 1.03, and sodium 130. Cardiac enzymes are negative and NT-proBNP is 22,207. Hemoglobin is 10.7. Assessment And Recommendations: 1.Atrial fibrillation with rapid ventricular response. Discontinue Cardizem drip. Start her on sot alol 80 mg twice a day and continue metoprolol for now until heart rate is controlled and then to dis continue metoprolol at a later time. To keep her for at least 3 doses until her heart rate is contro lled and we will plan for possible LATRICE-guided cardioversion at a later time. Patient has a Watchman in place, and continue baby aspirin. 2.Congestive heart failure with acute exacerbation. Agree with gentle diuresis, Lasix 20 mg twice a day, carefully monitor her BUN, creatinine, and the sodium level. 3.Dyslipidemia. Continue statin. 4.Hypothyroidism, on LT4. Please check TSH level. SR/MODL Voice ID: [id number] Report ID: [id number]
[2024-02-01] MEDS ORDERED: ATORVASTATIN 10 MG TAB ONE (20:56)
[2024-02-01] MEDS ORDERED: FAMOTIDINE 20 MG TAB ONE (20:56)
[2024-02-01] MEDS: ATORVASTATIN 10 MG TAB PO SCH (21:00)
[2024-02-01] MEDS: FAMOTIDINE 20 MG TAB PO SCH (21:01)
[2024-02-02 05:12] LABS: Absolute Eosinophils 0.3 K/uL (0-0.5); Absolute Lymphocytes (CBC) 2.2 K/uL (0.7-4.9); Absolute Monocytes 0.6 K/uL (0.1-1.3); Absolute Neutrophil 4.4 K/uL (1.8-8.0); Basophils % 0.6 % (0-1.3); Eosinophils % 3.6 % (0-4.4); Hematocrit 30.6 % (36.0-45.0); Hemoglobin 10.7 g/dL (12.0-15.0); Lymphocytes % 28.7 % (15.3-44.8); MCH 31.4 pg (27.0-35.0); MCHC 35.1 g/dL (32.0-36.0); MCV 89.3 fL (80-100); MPV 7.6 fL (7.6-11.3); Monocytes % 8.5 % (3.3-12.3); Neutrophils % 58.6 % (41.7-73.7); Nucleated Red Blood Cells % 0.1 % (0-0); Platelets 202 thou/uL (152-406); RBC Red Blood Cell Count 3.43 M/uL (3.86-4.86); Red Cell Distribution Width 13.2 % (12.1-15.2)
[2024-02-02 05:30] LABS: Albumin 3.4 g/dL (3.4-5.0); Anion Gap 9.2 mEq/L (5.0-15.0); Bilirubin Total 0.8 mg/dL (0.2-1.0); Globulin 3.4 g/dL (2.3-3.5); Phosphorus 2.7 mg/dL (2.5-4.9); Potassium 3.2 mEq/L (3.5-5.1); Protein, Total 6.8 g/dL (6.4-8.2)
[2024-02-02] MEDS: POTASSIUM CL SA 10 MEQ TAB PO ONE (06:11)
[2024-02-02] MEDS ORDERED: POTASSIUM CL SA 10 MEQ TAB PO ONE (06:16)
[2024-02-02] MEDS ORDERED: IPRATROPIUM BROM 0.5MG/2.5ML ONE (07:41)
[2024-02-02] MEDS ORDERED: ONDANSETRON 4 MG/2 ML VIAL ONE ×2 (08:02→16:58)
[2024-02-02] MEDS ORDERED: MAGNESIUM OXIDE 400 MG TAB ONE (08:02)
[2024-02-02] MEDS ORDERED: PANTOPRAZOLE 40MG TABLET PO ONE (08:02)
[2024-02-02] MEDS ORDERED: ZINC SULFATE 220 MG CAP ONE (08:02)
[2024-02-02] MEDS ORDERED: MULTIVITAMIN TAB PO ONE (08:03)
[2024-02-02] MEDS ORDERED: FUROSEMIDE 20 MG/ 2ML VIAL ONE (08:03)
[2024-02-02] MEDS ORDERED: ASPIRIN EC 81 MG TAB PO ONE (08:03)
[2024-02-02] MEDS ORDERED: hydroCHLOROthiazide 25 MG TAB ONE (08:03)
[2024-02-02] MEDS ORDERED: ENOXAPARIN 40 MG/0.4 ML SQ ONE (08:03)
[2024-02-02] MEDS ORDERED: LOSARTAN POTASSIUM 50 MG TABLET ONE (08:03)
[2024-02-02] MEDS ORDERED: NA CHLORIDE 0.9% 1,000 ML ONE (08:04)
[2024-02-02] MEDS: ONDANSETRON 4 MG/2 ML VIAL IV PRN (08:06)
[2024-02-02] MEDS: LOSARTAN POTASSIUM 50 MG TABLET PO SCH (08:08)
[2024-02-02] MEDS: NA CHLORIDE 0.9% 1,000 ML IV SCH (08:08)
[2024-02-02] MEDS: MULTIVITAMIN TAB PO SCH (08:09)
[2024-02-02] MEDS: ZINC SULFATE 220 MG CAP PO SCH (08:09)
[2024-02-02] MEDS: PANTOPRAZOLE 40MG TABLET PO SCH (08:09)
[2024-02-02] MEDS: MAGNESIUM OXIDE 400 MG TAB PO SCH (08:10)
[2024-02-02] MEDS: CALCIUM CARB 500MG/VIT D 200 IU TAB PO SCH (08:49)
[2024-02-02] MEDS: FERROUS SULFATE 325 MG TAB PO SCH (08:49)
[2024-02-02] MEDS: MONTELUKAST 10 MG TAB PO SCH (08:49)
[2024-02-02] MEDS: COLESTIPOL 1 GM TAB PO SCH (08:49)
[2024-02-02] MEDS: VITAMIN D 5,000 UNIT CAP PO SCH (08:51)
[2024-02-02] MEDS ORDERED: hydroCHLOROthiazide 12.5 MG CAP PO SCH (09:00)
--- NOTE | 2024-02-02 12:52 | P.PN ---
Subjective Date of Service: 02/02/24 Chief Complaint: Afib W RVR Patient states he feels much better today. Heart rate has improved on sotalol. She denies any shortness of breath. Has sodium level trended down. Physical Examination - Vital Signs Temperature: 97.0 F Blood Pressure: 143/99 Pulse: 91 Respirations: 17 Pulse Ox (%): 94 Assessment And Plan - Plan Physical Exam General: Alert, Oriented x3, Cooperative, NAD Neck: Supple, No Thyromegaly, No LAD Respiratory: Clear to auscultation bilaterally, Normal air movement, Crackles/rales Cardiovascular: No rubs, Edema, Irregular heart rate/rhythm Gastrointestinal: Soft and benign, W/out hepatosplenomegaly, No tenderness Musculoskeletal: No clubbing, No swelling Integumentary: No rashes, No breakdown Neurological: Normal speech, Normal strength at 5/5 x4 extr, Cranial nerves 3-12 intact, Normal reflexes 2+, Normal affect Diagnosis Atrial fibrillation with RVR Acute on chronic diastolic heart failure Hypertension Plan: A-fib with RVR Status post Cardizem drip. Patient was also on metoprolol. She was seen and evaluated by cardiology Dr. Longo, metoprolol discontinued Cardizem drip discontinued and patient placed on sotalol. History of watchman's procedure not on any blood thinners Continue telemetry Serial EKG. Acute on chronic CHF possibly combined systolic/diastolic Status post IV Lasix. Lasix discontinued due to hyponatremia Monitor. Hypertension Continue home medications and diet Continue losartan for hypertension. Hydralazine as needed Hyponatremia Acute kidney injury RAYRAY resolved, hyponatremia is worse. Lasix discontinued. Discontinue hydrochlorothiazide Monitor BMP. Hypothyroidism Continue home dose Synthroid DVT prophylaxis: Lovenox Advanced directive: Full Code
[2024-02-02] MEDS: METOPROLOL TAR 25 MG TAB PO SCH (14:46)
[2024-02-02] MEDS ORDERED: METOPROLOL TARTRATE 5 MG/5 ML INJ IV ONE (15:18)
[2024-02-02] MEDS: METOPROLOL TARTRATE 5 MG/5 ML INJ IV STA (15:20)
[2024-02-02] MEDS ORDERED: METOPROLOL TAR 25 MG TAB ONE (16:58)
[2024-02-02] MEDS ORDERED: D5W 100 ML IV ONE (16:59)
[2024-02-02] MEDS ORDERED: AMIODARONE HCL 150 MG/3 ML INJ IV ONE (16:59)
[2024-02-02] MEDS ORDERED: AMIODARONE IN DEXTROSE,ISO-OSM 360 MG/200 ML BAG IV ONE (16:59)
[2024-02-02] MEDS ORDERED: AMIODARONE HCL 450 MG in D5W 241 ML IV SCH (17:00)
[2024-02-02] MEDS: AMIODARONE HCL 150 MG in D5W 100 ML IV STA (17:02)
[2024-02-02] MEDS: AMIODARONE IN DEXTROSE,ISO-OSM 360 MG/200 ML BAG IV SCH ×2 (17:30→23:30)
--- NOTE | 2024-02-02 18:33 | RAD REPORT ---
EXAM DESCRIPTION: CT - Angio Aorta For Dissection - 02/02/2024 5:50 pm CLINICAL HISTORY: A-fib with RVR. CHF. PE r/o COMPARISON: Chest Single View dated 01/31/2024; Chest Pa And Lat (2 Views) dated 01/01/2024 TECHNIQUE: Thin axial CT images of the chest, abdomen, and pelvis were obtained during administratio n of iodinated IV contrast. Sagittal and coronal reconstructions as well as maximal intensity project ion reconstruction were generated and reviewed per an aortic angiography protocol. All CT scans are performed using dose optimization technique as appropriate and may include automated exposure control or mA/KV adjustment according to patient size. FINDINGS: Aorta is normal in diameter with no dissection or other acute aortic findings. Reconstruct ion images show no significant findings. Pulmonary arteries are normal as well. No mass or infiltrate in the lung parenchyma. No pleural thickening, or pneumothorax. Small bilateral layering pleural effusions. Peripheral left upper lobe calcified 7 mm granuloma. Mild cardiomegaly. Left atrial appendage prosthesis in place. No abnormal mediastinal or hilar mass o r lymphadenopathy seen. No chest wall mass or abnormal axillary lymphadenopathy. Celiac, SMA and renal arteries show no suspicious findings. Mild colonic diverticulosis. Solid abdomi nal viscera and bowel show no other significant findings. No mass or abnormal lymphadenopathy. Status post cholecystectomy. IMPRESSION: No acute abnormalities on CT angiogram of the aorta. Mild cardiomegaly. No other acute findings on chest, abdomen and pelvis examination. Incidental findings as above.
--- NOTE | 2024-02-02 19:59 | RAD REPORT ---
EXAM DESCRIPTION: RAD - Chest Single View - 01/31/2024 10:59 pm CLINICAL HISTORY: 4 years Female, DYSPNEA COMPARISON: Chest radiograph dated 01/01/2024 IMPRESSION: Chronic lung changes. No focal consolidation. No pleural effusion. No pneumothorax. Cardiomediastinal silhouette is within normal limits. No acute osseous abnormality. Electronically signed by: Bruce Valle DO 01/31/2024 11:16 PM CDT Due to temporary technical issues with the PACS/Fluency reporting system, reports are being signed by the in house radiologists without review as a courtesy to insure prompt reporting. The interpreting radiologist is fully responsible for the content of the report.
[2024-02-02] MEDS ORDERED: FAMOTIDINE 20 MG TAB ONE (20:20)
[2024-02-02] MEDS ORDERED: ATORVASTATIN 10 MG TAB ONE (20:20)
[2024-02-03] MEDS ORDERED: METOCLOPRAMIDE 10 MG/2mL INJ ONE ×2 (01:08→20:52)
[2024-02-03] MEDS: METOCLOPRAMIDE 10 MG/2mL INJ IV SCH (01:09)
[2024-02-03 04:14] LABS: Absolute Basophils 0.1 K/uL (0-0.5); Absolute Monocytes 0.8 K/uL (0.1-1.3); Absolute Neutrophil 9.2 K/uL (1.8-8.0); Basophils % 0.5 % (0-1.3); Eosinophils % 0.1 % (0-4.4); Lymphocytes % 16.4 % (15.3-44.8); MCH 30.1 pg (27.0-35.0); MCHC 33.4 g/dL (32.0-36.0); MPV 7.6 fL (7.6-11.3); Monocytes % 6.3 % (3.3-12.3); Neutrophils % 76.7 % (41.7-73.7); Platelets 205 thou/uL (152-406); RBC Red Blood Cell Count 3.67 M/uL (3.86-4.86); Red Cell Distribution Width 13.1 % (12.1-15.2)
[2024-02-03 04:29] LABS: Magnesium 1.9 mg/dL (1.6-2.4); Phosphorus 2.8 mg/dL (2.5-4.9)
[2024-02-03] MEDS ORDERED: AMIODARONE IN DEXTROSE,ISO-OSM 360 MG/200 ML BAG IV ONE (11:10)
[2024-02-03] MEDS ORDERED: SODIUM CHLORIDE 0.9% 10ML INJ IV PRN (11:16)
[2024-02-03] MEDS: METOCLOPRAMIDE 10 MG/2mL INJ IV PRN (11:23)
[2024-02-03 12:03] LABS: Uric Acid 7.9 mg/dL (2.6-6.0)
--- NOTE | 2024-02-03 12:09 | P.PN ---
Subjective Date of Service: 02/03/24 Chief Complaint: Afib W RVR Patient reports nausea. She is to have rapid A-fib on sotalol. Sotalol was changed to Amiodarone drip yesterday She denies any shortness of breath. Sodium level is worse today. Physical Examination - Vital Signs Temperature: 97.5 F Blood Pressure: 129/101 Pulse: 90 Respirations: 15 Pulse Ox (%): 94 Assessment And Plan - Plan Physical Exam General: Alert, Oriented x3, Cooperative, NAD Neck: Supple, No Thyromegaly, No LAD Respiratory: Clear to auscultation bilaterally, Normal air movement, Crackles/rales Cardiovascular: No rubs, Edema, Irregular heart rate/rhythm Gastrointestinal: Soft and benign, W/out hepatosplenomegaly, No tenderness Musculoskeletal: No clubbing, No swelling Integumentary: No rashes, No breakdown Neurological: Normal speech, no focal motor deficit. Diagnosis Atrial fibrillation with RVR Acute on chronic diastolic heart failure Hypertension Plan: A-fib with RVR Status post Cardizem drip. Patient was also on metoprolol. She was seen and evaluated by cardiology Dr. Longo, metoprolol discontinued Cardizem drip discontinued and patient placed on sotalol. Sotalol later changed to amiodarone drip. Heart rate in the low 100s on amiodarone drip. Patient reports nausea-most likely related to the amiodarone. History of watchman's procedure not on any blood thinners Cardiology to follow Acute on chronic CHF possibly combined systolic/diastolic Status post IV Lasix. Lasix discontinued due to hyponatremia Monitor. Hypertension Continue home medications and diet Continue losartan for hypertension. Hydralazine as needed Hyponatremia Acute kidney injury RAYRAY resolved, hyponatremia is worse. Lasix discontinued. Nephrology consulted Urine electrolytes ordered Hydrochlorothiazide discontinued. Monitor BMP. Hypothyroidism Continue home dose Synthroid DVT prophylaxis: Lovenox Advanced directive: Full Code
[2024-02-03] MEDS ORDERED: THIAMINE HCL 100 MG TABLET ONE (12:42)
[2024-02-03] MEDS: THIAMINE HCL 100 MG TABLET PO SCH (12:44)
[2024-02-03] MEDS: NA CHLORIDE 0.9% 1,000 ML IV SCH (12:44)
[2024-02-03] MEDS: SODIUM CHLORIDE 1 GM TAB PO SCH (14:00)
[2024-02-03] MEDS: UREA 15 GM POWDER PACKET PO SCH (14:00)
--- NOTE | 2024-02-03 14:22 | RAD REPORT ---
EXAM DESCRIPTION: US - Renal Ultrasound-Complete - 02/03/2024 2:03 pm CLINICAL HISTORY: cardiorenal syndromed COMPARISON: Small Bowel Series dated 02/27/2023 FINDINGS: Both kidneys are normal in size, shape and echotexture. The right kidney measures 9.1 cm. No hydronephrosis, focal mass or perinephric fluid. The left kidney measures 9.5 cm. No hydronephrosis, focal mass or perinephric fluid. The urinary bladder is incompletely distended without gross abnormality seen. IMPRESSION: Unremarkable renal sonogram. No hydronephrosis.
--- NOTE | 2024-02-03 14:56 | PN ---
Date of Progress Note: 02/03/2024 Subjective: Seen at bedside, doing clinically well. Review of Systems: Does not have any chest pain, shortness of breath, orthopnea, or cough. No nausea, vomiting, diarrhe a. All other systems reviewed and are negative. Physical Examination: Vital Signs: Reviewed. Head and Neck: Pupils are equal, reactive to light. Intact eye movements. No JVD. No cervical lym phadenopathy. Neck is supple. Thyroid is not enlarged. Lungs: Clear to auscultation bilaterally. No crackles. No accessory muscle use. Heart: Irregularly irregular. No extra sounds. Abdomen: Soft, nontender. Bowel sounds positive. No organomegaly. No masses or hernia. No rigidi ty or rebound. Extremities: No edema, clubbing, or cyanosis. Intact pulses. Skin: No rash. Neurologic: Alert, awake, oriented x3. No acute focal deficits appreciated. Lymph Nodes: No cervical lymphadenopathy. Investigations: Labs reviewed. Assessment/recommendations: 1.Atrial fibrillation with rapid ventricular response, now on amiodarone drip. Continue 24 hours lo ad and then would switch to 200 mg twice a day and continue metoprolol and started on Eliquis 5 mg tw ice a day. Plan for LATRICE-guided cardioversion tomorrow. She had Watchman in place, but since we are going to do the cardioversion, I will give her 4 weeks of Eliquis. 2.Congestive heart failure with acute exacerbation, responded very well to diuresis and she appears to be euvolemic off Lasix for now. 3.Hyponatremia. Nephrology is on board taking care of this issue. 4.Dyslipidemia. She is on Lipitor. Recommend to increase it to 40 mg at bedtime. SR/MODL Voice ID: [id number] Report ID: [id number]
[2024-02-03 16:28] LABS: Anion Gap 9.7 mEq/L (5.0-15.0); Potassium 3.7 mEq/L (3.5-5.1)
[2024-02-03] MEDS ORDERED: METOPROLOL TAR 25 MG TAB ONE (17:08)
[2024-02-03 19:40] LABS: Urine Bacteria <20 /HPF (<20); Urine Culture Reflex Order NOT NEEDED; Urine Mucus Slight /HPF (None Seen); Urine WBC <5 /HPF (<5)
[2024-02-03 19:41] LABS: Specific Gravity > 1.030 (1.005-1.030); Urine Bilirubin NEGATIVE (Negative); Urine Blood Trace (Negative); Urine Clarity Clear (Clear); Urine Color Yellow (Yellow); Urine Glucose NEGATIVE (Negative); Urine Ketones 1+ (Negative); Urine Microscopic Reflex YN NO UMIC; Urine Nitrite NEGATIVE (Negative); Urine Protein 1+ (Negative); Urine Urobilinogen 1+ (Normal); Urine pH 6.5 (5.0-7.0)
[2024-02-03 19:44] LABS: UR SODIUM < 15 mmol/L (27-287)
[2024-02-03] MEDS ORDERED: ATORVASTATIN 10 MG TAB ONE (20:03)
[2024-02-03] MEDS ORDERED: FAMOTIDINE 20 MG TAB ONE (20:03)
[2024-02-03] MEDS: PANTOPRAZOLE 40 MG INJ IVP SCH (20:14)
[2024-02-03] MEDS: POTASS/SODIUM PHOSPHATE 1 PKT POWD.PACK PO SCH (20:14)
[2024-02-03] MEDS: APIXABAN 5 MG TABLET PO SCH (20:14)
[2024-02-03 22:01] LABS: Anion Gap 13.2 mEq/L (5.0-15.0); Potassium 4.2 mEq/L (3.5-5.1)
[2024-02-03] MEDS: UREA 15 GM POWDER PACKET PO ONE (23:00)
[2024-02-03] MEDS ORDERED: IPRATROPIUM BROM 0.5MG/2.5ML ONE (23:14)
[2024-02-03] MEDS ORDERED: ALBUTEROL 2.5 MG/3 ML NEB SOL ONE (23:14)
[2024-02-03] MEDS ORDERED: FUROSEMIDE 20 MG TABLET ONE (23:23)
[2024-02-03] MEDS: IPRATROPIUM BROM 0.5MG/2.5ML NEB PRN (23:28)
[2024-02-03] MEDS: ALBUTEROL 2.5 MG/3 ML NEB SOL NEB PRN (23:28)
[2024-02-03] MEDS: FUROSEMIDE 20 MG TABLET PO ONE (23:44)
[2024-02-03] MEDS: SODIUM CHLORIDE 1 GM TAB PO ONE (23:44)
[2024-02-04] MEDS ORDERED: AMIODARONE IN DEXTROSE,ISO-OSM 360 MG/200 ML BAG IV ONE ×2 (01:16→13:39)
[2024-02-04 05:18] LABS: Anion Gap 11.5 mEq/L (5.0-15.0); Potassium 3.5 mEq/L (3.5-5.1); Thyroid Stimulating Hormone 3.45 uIU/mL (0.358-3.740); Uric Acid 4.4 mg/dL (2.6-6.0)
[2024-02-04] MEDS ORDERED: KCL 20 MEQ/100 mL IVPB 100 ML IV ONE (06:25)
[2024-02-04] MEDS: KCL 20 MEQ/100 mL IVPB 20 MEQ/100 ML BAG IV ONE (06:26)
[2024-02-04] MEDS ORDERED: METOCLOPRAMIDE 10 MG/2mL INJ ONE (06:53)
[2024-02-04] MEDS ORDERED: FUROSEMIDE 20 MG TABLET ONE (07:22)
[2024-02-04] MEDS: POTASSIUM CL SA 10 MEQ TAB PO SCH (07:26)
[2024-02-04] MEDS ORDERED: METOPROLOL TARTRATE 5 MG/5 ML INJ IV ONE (07:54)
[2024-02-04] MEDS: METOPROLOL TARTRATE 5 MG/5 ML INJ IV PRN (08:01)
[2024-02-04] MEDS ORDERED: FUROSEMIDE 20 MG TABLET PO SCH (09:00)
--- NOTE | 2024-02-04 10:55 | P.PN ---
Subjective Date of Service: 02/04/24 Chief Complaint: Afib W RVR Patient is reporting intermittent nausea. She is still in atrial fibrillation and heart rate in the low 100s on amiodarone drip She denies any shortness of breath. Physical Examination - Vital Signs Temperature: 98.0 F Blood Pressure: 122/101 Pulse: 89 Respirations: 14 Pulse Ox (%): 97 Assessment And Plan - Plan Physical Exam General: Alert, Oriented x3, Cooperative, NAD Neck: Supple, No Thyromegaly, No LAD Respiratory: Clear to auscultation bilaterally, Normal air movement, Crackles/rales Cardiovascular: No rubs, Edema, Irregular heart rate/rhythm Gastrointestinal: Soft and benign, W/out hepatosplenomegaly, No tenderness Musculoskeletal: No clubbing, No swelling Integumentary: No rashes, No breakdown Neurological: Normal speech, no focal motor deficit. Diagnosis Atrial fibrillation with RVR Acute on chronic diastolic heart failure Hypertension Plan: A-fib with RVR Status post Cardizem drip. Patient was also on metoprolol. She was seen and evaluated by cardiology Dr. Longo, metoprolol discontinued Cardizem drip discontinued and patient placed on sotalol. Sotalol later changed to amiodarone drip. Heart rate in the low 100s on amiodarone drip. Patient reports nausea-most likely related to the amiodarone. History of watchman's procedure Dr. Longo is planning LATRICE-cardioversion today. Patient started on Eliquis for cardioversion. She needs to continue Eliquis for 4 weeks. Cardiology to follow Acute on chronic CHF possibly combined systolic/diastolic Status post IV Lasix. Lasix discontinued due to hyponatremia Monitor. Hypertension Continue home medications and diet Continue losartan for hypertension. Hydralazine as needed Hyponatremia Acute kidney injury RAYRAY resolved, hyponatremia improved slightly with urea Na. Nephrology is following and managing. Lasix discontinued. Nephrology consulted Hydrochlorothiazide discontinued. Monitor BMP. Hypothyroidism Continue home dose Synthroid DVT prophylaxis: Lovenox Advanced directive: Full Code
[2024-02-04 11:17] LABS: PT Prothrombin Time 22.3 SECONDS (9.5-12.5); PTT, Activated Partial Thromb 35.7 SECONDS (24.3-36.9); Protime INR 2.07
[2024-02-04] MEDS: NA CHLORIDE 0.9% 500 ML ONE (11:24)
[2024-02-04] MEDS ORDERED: propofoL 200 MG/20 ML VIAL IV ONE (12:26)
--- NOTE | 2024-02-04 12:41 | CON ---
History Of Present Illness: The patient is a 74-year-old with past medical history of bec ause of generalized weakness. She was complaining of palpitation, shortness of breath, which has bee n progressively getting worse over 2-3 days prior to admission. sodium level declined and she was found to have hyponatremia, sodium level of 122. Nephrology consultation is requested for hy ponatremia. The patient denies chest pain, nausea, vomiting, confusion, although she was short of br eath prior to this admission and she is feeling better today. The patient was assessed in the emerge ncy room, was found to have atrial fibrillation with rapid ventricular response and congestive heart failure. Initially, she responded to Cardizem, and was started on Cardizem drip. Subsequently, she was consulted by Cardiology. Currently, she is on amiodarone. Review of Systems: Constitutional: Denies fever, chills. Eyes: Denies vision changes. Ears, Nose, Mouth, and Throat: Denies sore throat, earache. Respiratory: Shortness of breath All other systems reviewed and all are negative. Past Medical History: Past Surgical History: Family History: No kidney disease. No heart disease in the family. Social History: Denies tobacco or alcohol. Denies . Physical Examination: GENERAL: Patient is awake, alert, oriented x3. Eyes: Anicteric sclerae. EOMI. Ears, Nose, Mouth, and Throat: Oral mucosa moist. No pallor. Neck: Supple. No bruits Lungs: Few rhonchi. Heart: S1, S2. Irregularly irregular. GI: Abdomen: Soft, benign, nontender. Extremities: No edema. No clubbing. No cyanosis. Skin: Warm and dry. No skin rashes. Laboratory Data: On January 30, sodium , potassium 3.6, BUN 12, creatinine 1.03, glucose 147 . Today, sodium level 122, potassium 4.0, chloride 89, CO2 25, BUN 11, creatinine 0.6, calcium troponin was 13. Yesterday, sodium level was 127, potassium 3.2, chloride 93, CO2 28, BUN 11, creatinine 0.7. Urine osmolality is pending. Random urine sodium 15. Uric acid hyponatr emia and cardiorenal syndrome. Patient may require diuretic at this point for for control . Atrial fibrillation with rapid ventricular response. The rate is controlled. Patient is on amiod arone drip and normal saline was started in view of hyponatremia. Patient will continue sodium chlor piyush tablet and urea History of hypertension and avoid HCTZ. The patient was treated with beta porsha for atrial fibrill ation and hypertension. TINY/MODL Voice ID: [id number] Report ID: [id number]
--- NOTE | 2024-02-04 14:33 | OP ---
Date of Procedure: 02/04/2024 Surgeon: NIRAJ WEBB Procedures Performed: 1.Transesophageal echocardiogram. 2.Electrical cardioversion to normal sinus rhythm. Indication: Atrial fibrillation. Description Of Procedure: After risks, benefits, and alternatives were explained, patient agreed to procedure and signed informed consent. The patient was brought into the OR after applying propofol b y Anesthesia. A LATRICE probe was inserted. Patient has a Watchman that has no leak or thrombus surroun ded. Then, LATRICE probe was removed and then a synchronized 200 joule electrocardioversion was performe d, successfully converting the rhythm into normal sinus rhythm. Conclusion: Successful LATRICE-guided electrical cardioversion. SR/MODL Voice ID: [id number] Report ID: [id number]
--- NOTE | 2024-02-04 17:58 | PN ---
Date of Progress Note: 02/04/2024 Subjective: Seen by bedside. She continues to be in atrial fibrillation, rate is borderline. Review of Systems: Positive shortness of breath on exertion with palpitations. No nausea, vomiting, or diarrhea. No ab dominal pain. No dysuria, polyuria, or urinary urgency. All other systems were reviewed, they were negative. Objective: Vital Signs: Reviewed. Head and Neck: Pupils are equal, reactive to light. Intact eye movements. No JVD. No cervical lym phadenopathy. Neck is supple. Thyroid is not enlarged. Lungs: Clear to auscultation bilaterally. No rhonchi, wheezing, or crackles. No accessory muscle u se. Heart: Irregularly irregular. No extra sounds. Abdomen: Soft, nontender. Bowel sounds positive. No organomegaly. No masses or hernia. No rigidi ty or rebound. Extremities: No edema, clubbing, or cyanosis. Intact pulses. Skin: No rash. No nodule. Neurologic: Alert, awake, oriented x3. No acute focal deficits appreciated. Investigations: Labs were reviewed. Assessment And Recommendations: 1.Atrial fibrillation with rapid ventricular response, loaded with amiodarone and status post a LATRICE- guided cardioversion and converted to sinus rhythm. Continue amiodarone and the metoprolol and I yosef l use Eliquis on her for only 4 weeks that she has a Watchman and after the 4 weeks are over to resum e baby aspirin. 2.Congestive heart failure exacerbation. Appears to be euvolemic. Continue current management, a l ow-salt diet, and daily body weight. 3.Dyslipidemia. Continue statin. 4.Hypothyroidism, stable. SR/MODL Voice ID: [id number] Report ID: [id number]
[2024-02-04 19:21] LABS: Anion Gap 11.7 mEq/L (5.0-15.0); Potassium 3.7 mEq/L (3.5-5.1)
[2024-02-04] MEDS: AMIODARONE HCL 200 MG TAB PO SCH (21:56)
[2024-02-04] MEDS: UREA 15 GM POWDER PACKET PO ONE (22:27)
[2024-02-04] MEDS: SODIUM CHLORIDE 1 GM TAB PO ONE (22:28)
[2024-02-04] MEDS: FUROSEMIDE 20 MG TABLET PO ONE (22:29)
[2024-02-04] MEDS ORDERED: SODIUM CHLORIDE 1 GM TAB PO ONE (22:33)
--- NOTE | 2024-02-05 03:25 | PN ---
Date of Progress Note: 02/04/2024 Chief Complaint: Hyponatremia. History Of Present Illness: The patient is a 74-year-old woman with past medical history significant for hypertension. She came to the hospital because of generalized weakness. She was complaining of palpitation, shortness of breath, which has been progressively getting worse over 2 to 3 days prior to this admission. The patient is admitted to ICU. She was started on Cardizem drip. Subsequently, she developed hyponatremia and sodium level was 122. Nephrology consultation is requested for hypon atremia. The patient denied chest pain, nausea, vomiting, confusion, although she complained of gene ralized weakness. The patient was started on sodium chloride tablets, urea by mouth, and normal sali ne. Sodium level gradually improved and additional dose of urea and sodium chloride was given. Toda y, sodium level improved to 126. Yesterday, sodium was 122 and 121. The patient denies chest pain, palpitation. Physical Examination: Lungs: Clear to auscultation bilaterally. Heart: S1, S2. Abdomen: Soft, benign. Extremities: No edema. Impression And Plan: Hyponatremia, hypo-osmolar. The patient developed severe hyponatremia in setti ng of atrial fibrillation with rapid ventricular response. Renal function remains at baseline. The patient had workup done to evaluate possible cause of hyponatremia. Most likely, it is related to at rial fibrillation with rapid ventricular response associated with some dyspnea and generalized weakne ss. The plan is to adjust treatment according to sodium level and workup is pending to rule out hypo thyroid. The patient has history of hypothyroid and she has been treated with Synthroid. TSH level is pending and cortisol level is ordered as well. The patient has history of hypertension. Avoid HC TZ due to the high risk of progressive hyponatremia. The patient is treated with beta-porsha for atrial fibrillation and hypertension. Today, she underwent LATRICE. Cardiology consultation was tiesha alvarez and Cardiology is following. EB/MODL Voice ID: [id number] Report ID: [id number]
[2024-02-05 04:10] LABS: Anion Gap 10.1 mEq/L (5.0-15.0); Potassium 3.1 mEq/L (3.5-5.1)
[2024-02-05] MEDS ORDERED: AMIODARONE IN DEXTROSE,ISO-OSM 360 MG/200 ML BAG IV ONE (04:51)
[2024-02-05] MEDS: AMIODARONE HCL 450 MG in D5W 241 ML IV SCH (05:47)
--- NOTE | 2024-02-05 07:24 | P.PN ---
Date of Service: 02/05/24 Subjective: Initially felt better after cardioversion converted back into a-fib overnight reports feeling intermittent palpitations. Dealing more with weakness/nausea from afib otherwise no new issues ROS: 10 point ROS as noted above, otherwise negative Physical Exam: GEN: Alert, oriented, NAD HEENT: Normal conjunctiva, sclera anicteric CV: Irregularly Irregular rate and rhythm, no edema Pulm: Nonlabored respirations on room air, clear bilaterrally ABD: Soft, nontender, nondistended Neuro: Normal speech, normal affect vitals reviewed Problem List: Atrial fibrillation with RVR, s/p cardioversion (02/03) Acute on chronic CHF exacerbation; HFpEF RAYRAY, resolved Hyponatremia Hypertension Hyperlipidemia Hypothyroidism Atrial fibrillation with RVR, s/p cardioversion (02/03) Reported intermittent palpitations, generalized weakness, dyspnea at home prior to admission for ~2-3 days. Hx Watchman's procedure ~3 years ago. Not on any blood thinners prior to admission CT dissection (02/01): mild Cardiomegaly, small bilateral layering pleural effusions, Peripheral WINNIE 7mm granuloma, mild colonic diverticulosis Cardiology is following cardizem drip dc'd and switched to Sotalol after initially seen by Cardio; then IV amio s/p LATRICE guided cardioversion (02/03) - successfully converted into sinus rhythm Started on eliquis post cardioversion. To continue for 4 weeks then deescalate back to baby aspirin Patient converted back into a-fib overnight 02/03-02/04 PO amiodarone switched to IV amiodarone overnight continue IV amiodarone / PO metoprolol Cardiology considering digoxin if no improvement after 24hrs May need to consider cardiac ablation down the road in the near future Acute on chronic CHF exacerbation, HFpEF BNP 2207 s/p IV Lasix. Lasix dc'd due to hyponatremia appears to be euvolemic RAYRAY, resolved Hyponatremia RAYRAY resolved, hyponatremia improved slightly with urea Na; holding HCTZ renal u/s (02/02): unremarkable IV lasix/hctz dc'd given hypoNa Nephrology consulted continue to monitor renal function Hypertension continue losartan dc'd home hctz due to hypoNa Hyperlipidemia continue home statin Hypothyroidism continue home synthroid TSH 3.45 VTE: Eliquis Code: Full Dispo: Home, ~1-2 days Pending converts to normal sinus rhythm / cardiac recs
[2024-02-05] MEDS: POTASSIUM 25 MEQ EFFERV TAB PO ONE (08:38)
--- NOTE | 2024-02-05 08:38 | TEE ---
TRANSESOPHAGEAL ECHOCARDIOGRAM REPORT CARDIOLOGY DEPARTMENT DATE OF STUDY: 02/04/2024 HEIGHT: 5'4" WEIGHT: 180 lbs DIAGNOSIS: ATRIAL FIBRILLATION J2EE ANDROID DEVELOPER COMMENTS: LATRICE CARDIAC HISTORY: CATHERIZATION: SURGERY: PROSTHETIC VALVE: PACEMAKER: 2 DIMENSIONAL ASSESSMENT: RIGHT ATRIUM: NOT ACCESSED LEFT ATRIUM: ENLARGED RIGHT VENTRICLE: NOT ACCESSED LEFT VENTRICLE: NOT ACCESSED TRICUSPID VALVE: MODERATE TRICUSPID REGURGITATION MITRAL VALVE: MILD MITRAL REGURGITATION PULMONIC VALVE: NOT ACCESSED AORTIC VALVE: NOT ACCESSED PERICARDIAL EFFUSION: NONE AORTIC ROOT: NOT ACCESSED EJECTION FRACTION: LEFT VENTRICULAR WALL MOTION: NOT ACCESSED DOPPLER/COLOR FLOW: NOT DONE COMMENTS: 1. NORMAL LEFT ATRIAL APPENDAGE (WATCHMAN) OCCLUSION DEVICE, NO LEAK, NO THROMBUS 2. MILD MITRAL REGURGITATION, MODERATE TRICUSPID REGURGITATION TECHNOLOGIST: PRESTON ABDUL
[2024-02-05] MEDS: NS KCL 20MEQ 1,000 ML IV SCH (10:42)
[2024-02-05] MEDS ORDERED: NA CHLORIDE 0.9% 1,000 ML with POTASSIUM CL 20 MEQ IV SCH (11:00)
--- NOTE | 2024-02-05 13:00 | P.PN ---
Subjective Date of Service: 02/05/24 Chief Complaint: Afib W RVR Subjective: New changes (Patient went back into AF overnight) Review of Systems 10-point ROS is otherwise unremarkable Physical Examination - Vital Signs Temperature: 98.1 F Blood Pressure: 148/90 Pulse: 116 Respirations: 16 Pulse Ox (%): 95 - Physical Exam General: Alert, Oriented x3 HEENT: Atraumatic Neck: Supple Respiratory: Clear to auscultation bilaterally Cardiovascular: Irregular heart rate/rhythm Gastrointestinal: Normal bowel sounds Assessment And Plan - Current Problems (Diagnosis) (1) Atrial fibrillation with RVR Current Visit: Yes Status: Acute Plan: Patient failed LATRICE DCCV and back into amiodarone drip, will continue that for next 24 hours, if still in AF then consider digoxin load. continue Eliquis. (2) CHF (congestive heart failure) Current Visit: Yes Status: Acute Plan: appears euvolemic on exam, continue metoprolol and lasix. (3) Hypertension Current Visit: Yes Status: Acute Plan: better controlled, continue current medications.
--- NOTE | 2024-02-05 14:41 | PN ---
Date of Progress Note: 02/05/2024 Subjective: The patient was admitted with hyponatremia. Workup showed depletional hyponatremia. The patient had nausea and vomiting. The patient had atrial fibrillation with RVR. Physical Examination: Vital Signs: Blood pressure 100/60, pulse of 120, afebrile. Chest: Clear to auscultation. Heart: S1, S2 regular. Abdomen: Soft, nontender. Extremities: No edema. Neuro: Alert, no focality. Lab: Hemoglobin 11, WBC 12. Sodium 127, potassium 3.1, bicarb 30, BUN 18, creatinine 0.9. Calcium of 9. Current Medications: Include albuterol, Eliquis, ferrous sulfate, calcium, atorvastatin, metoprolol 25 b.i.d., Lasix, received single dose yesterday, breathing treatment, metoclopramide, pantoprazole. Assessment And Plan: 1. Hyponatremia secondary to depletional. I am going to resume IV fluid. Hold diuresis and we will monitor the patient. 2. Hypertension, currently hypotension. We will start gentle hydration and we will follow up the patient. 3. Atrial fibrillation with RVR. As by primary. 4. Hypokalemia. We will supplement. Time spent examining the patient [id number], reviewing data, lab and radiology, placing order, discussing the case with the patient, discussing the case with the steam roller operator including hospitalist and nursing staff with the dialysis nurse more than 35 minutes JAILENE Voice ID: [id number] Report ID: [id number] MTDD
[2024-02-05] MEDS: AMIODARONE HCL 900 MG in Dextrose 5%-Water 482 ML IV SCH (19:00)
[2024-02-05] MEDS: AMIODARONE IN DEXTROSE,ISO-OSM 360 MG/200 ML BAG IV ONE (19:35)
[2024-02-06 04:15] LABS: Hematocrit 31.1 % (36.0-45.0); Hemoglobin 10.5 g/dL (12.0-15.0); MCH 30.2 pg (27.0-35.0); MCHC 33.8 g/dL (32.0-36.0); MCV 89.5 fL (80-100); MPV 7.5 fL (7.6-11.3); Platelets 211 thou/uL (152-406); RBC Red Blood Cell Count 3.48 M/uL (3.86-4.86); Red Cell Distribution Width 13.4 % (12.1-15.2)
[2024-02-06 04:36] LABS: Anion Gap 11.1 mEq/L (5.0-15.0); Magnesium 1.8 mg/dL (1.6-2.4); Potassium 3.1 mEq/L (3.5-5.1)
[2024-02-06] MEDS: AMIODARONE IN DEXTROSE,ISO-OSM 360 MG/200 ML BAG IV ONE (07:15)
[2024-02-06 08:38] VITALS: BMI 31.0
--- NOTE | 2024-02-06 09:15 | P.PN ---
Date of Service: 02/06/24 Subjective: remains in a-fib with HR in 80-90s, up to 110s with movement feels nausea/dyspnea is improving ; tolerated some of her dinner last night otherwise doesn't feel like anything is getting worse, but only mildly better ROS: 10 point ROS as noted above, otherwise negative Physical Exam: GEN: Alert, oriented, NAD HEENT: Normal conjunctiva, sclera anicteric CV: irregularly irregular rhythm, no edema Pulm: Nonlabored respirations on room air, clear bilaterrally ABD: Soft, nontender, nondistended Neuro: Normal speech, normal affect vitals reviewed Problem List: Atrial fibrillation with RVR, s/p cardioversion (02/03) Acute on chronic CHF exacerbation; HFpEF RAYRAY, resolved Hyponatremia Hypertension Hyperlipidemia Hypothyroidism Atrial fibrillation with RVR, s/p cardioversion (02/03) Reported intermittent palpitations, generalized weakness, dyspnea at home prior to admission for ~2-3 days. Hx Watchman's procedure ~3 years ago. Not on any blood thinners prior to admission CT dissection (02/01): mild Cardiomegaly, small bilateral layering pleural effusions, Peripheral WINNIE 7mm granuloma, mild colonic diverticulosis Cardiology is following cardizem drip dc'd and switched to Sotalol after initially seen by Cardio; then IV amio s/p LATRICE guided cardioversion (02/03) - successfully converted into sinus rhythm Started on eliquis post cardioversion. To continue for 4 weeks then deescalate back to baby aspirin Patient converted back into a-fib overnight 02/03-02/04 continue PO metoprolol IV amio switched to PO after cardioversion, however pt back into afib. Restarted amio drip 02/05 - still in afib, cardiology recommended digoxin load May need to consider cardiac ablation down the road in the near future Acute on chronic CHF exacerbation, HFpEF BNP 2207 s/p IV Lasix. Lasix dc'd due to hyponatremia appears to be euvolemic RAYRAY, resolved Hyponatremia RAYRAY resolved, hyponatremia improved slightly with urea Na; holding HCTZ renal u/s (02/02): unremarkable IV lasix/hctz dc'd given hypoNa - felt secondary to be depletional Nephrology consulted continue to monitor renal function sodium improving monitor of IVF today, repeat labs in AM Hypertension continue losartan dc'd home hctz due to hypoNa Hyperlipidemia continue home statin Hypothyroidism continue home synthroid TSH 3.45 VTE: Eliquis Code: Full Dispo: Home, ~1-2 days Pending converts to normal sinus rhythm / cardiac recs
[2024-02-06] MEDS: POTASSIUM 25 MEQ EFFERV TAB PO ONE (13:13)
[2024-02-06] MEDS: MAGNESIUM SULFATE 1 gm IVPB 1 GM/100 ML BAG IV ONE (13:13)
[2024-02-06] MEDS: DIGOXIN 0.25 MG/ML AMP IV ONE (13:14)
--- NOTE | 2024-02-06 14:17 | PN ---
Date of Progress Note: 02/06/2024 Subjective: The patient was admitted to the hospital with hyponatremia, atrial fibrillation with RVR. Her hyponatremia was depletional. The patient was started on IV hydration. Sodium started trending up. Physical Examination: Vital Signs: Blood pressure 109/62, pulse of 96, afebrile. Chest: Clear to auscultation. Heart: S1, S2 regular. Abdomen: Soft, nontender. Extremities: No edema. Neurologic: Alert. No focality. No tremor. Laboratory Data: Hemoglobin 10.5. Sodium 132, potassium 3.1, bicarb 29, BUN 10, creatinine 0.7, calcium 8.4, magnesium 1.8. Current Medications: The patient is on include Eliquis, aspirin, albuterol, ferrous sulfate, calcium, atorvastatin, losartan 100, metoprolol, Tylenol, zinc sulfate, IV fluid. Assessment And Plan: 1. Hyponatremia secondary to depletional, recovered, trending up. I am going to give the patient good p.o. intake. I am going to go ahead and discontinue IV fluid. We will continue to monitor. 2. Hypokalemia, hypomagnesemia. We will supplement. 3. Hypertension, controlled, optimal. Continue current treatment. 4. Atrial fibrillation, as by primary. Time spent examining the patient [id number], reviewing data, lab and radiology, placing order, discussing the case with the patient, discussing the case with the restaurant hourly team member including hospitalist and nursing staff with the dialysis nurse more than 35 minutes JAILENE Voice ID: [id number] Report ID: [id number] POORNIMA
[2024-02-06] MEDS: METOPROLOL XL 25 MG TAB PO ONE (17:03)
--- NOTE | 2024-02-06 19:14 | P.PN ---
Subjective Date of Service: 02/06/24 Chief Complaint: Afib W RVR Subjective: No new changes Review of Systems 10-point ROS is otherwise unremarkable Physical Examination - Vital Signs Temperature: 98.4 F Blood Pressure: 140/88 Pulse: 108 Respirations: 18 Pulse Ox (%): 98 - Physical Exam General: Alert, Oriented x3 HEENT: Atraumatic Neck: Supple Respiratory: Clear to auscultation bilaterally Cardiovascular: No edema, Irregular heart rate/rhythm Gastrointestinal: Normal bowel sounds Assessment And Plan - Current Problems (Diagnosis) (1) Atrial fibrillation with RVR Current Visit: Yes Status: Acute Plan: Patient failed LATRICE DCCV D/C amiodarone drip start Amiodarone 200 mg po BID Digoxin 500 mcg x1 then 250 mcg in 8 hoours followed by another 250 mcg in another 8 hours then continue 125 mcg daily Check digoxin level in am. increase Metoprolol to 50 mg po BID. continue Eliquis. (2) CHF (congestive heart failure) Current Visit: Yes Status: Acute Plan: appears euvolemic on exam, continue metoprolol and lasix. (3) Hypertension Current Visit: Yes Status: Acute Plan: better controlled, continue current medications.
[2024-02-06] MEDS: DIGOXIN 0.25 MG/ML AMP IV SCH (21:50)
[2024-02-06] MEDS: AMIODARONE HCL 200 MG TAB PO SCH (21:51)
[2024-02-06] MEDS: METOPROLOL TAR 50 MG TAB PO SCH (21:51)
[2024-02-07 04:15] LABS: Magnesium 1.9 mg/dL (1.6-2.4); Phosphorus 2.2 mg/dL (2.5-4.9)
--- NOTE | 2024-02-07 08:42 | P.PN ---
Date of Service: 02/07/24 Subjective: remains in a-fib. Rate controlled in 80s Feeling better today. able to ambulate without issues. Denies dizziness while ambulating Dyspnea resolved after lasix per patient no new issues overnight ROS: 10 point ROS as noted above, otherwise negative Physical Exam: GEN: Alert, oriented, NAD HEENT: Normal conjunctiva, sclera anicteric CV: irregularly irregular rhythm, no edema Pulm: Nonlabored respirations on room air, clear bilaterrally ABD: Soft, nontender, nondistended Neuro: Normal speech, normal affect vitals reviewed Problem List: Atrial fibrillation with RVR, s/p cardioversion (02/03) Acute on chronic CHF exacerbation; HFpEF RAYRAY, resolved Hyponatremia Hypertension Hyperlipidemia Hypothyroidism Atrial fibrillation with RVR, s/p cardioversion (02/03) Reported intermittent palpitations, generalized weakness, dyspnea at home prior to admission for ~2-3 days. Hx Watchman's procedure ~3 years ago. Not on any blood thinners prior to admission CT dissection (02/01): mild Cardiomegaly, small bilateral layering pleural effusions, Peripheral WINNIE 7mm granuloma, mild colonic diverticulosis Cardiology is following cardizem drip dc'd and switched to Sotalol after initially seen by Cardio; then IV amio s/p LATRICE guided cardioversion (02/03) - successfully converted into sinus rhythm Started on eliquis post cardioversion. To continue for 4 weeks then deescalate back to baby aspirin Patient converted back into a-fib overnight 02/03-02/04 continue PO metoprolol - increased to 50 mg BID 02/04 switch amio drip to PO amiodarone 200 mg BID loaded up with digoxin 02/05 pm digoxin levels pending. May need to consider cardiac ablation down the road in the near future Acute on chronic CHF exacerbation, HFpEF BNP 2207 s/p IV Lasix. Lasix dc'd due to hyponatremia appears to be euvolemic RAYRAY, resolved Hyponatremia RAYRAY resolved, hyponatremia improved slightly with urea Na; holding HCTZ renal u/s (02/02): unremarkable IV lasix/hctz dc'd given hypoNa - felt secondary to be depletional Nephrology consulted continue to monitor renal function sodium stable Hypertension continue losartan dc'd home hctz due to hypoNa Hyperlipidemia continue home statin Hypothyroidism continue home synthroid TSH 3.45 VTE: Eliquis Code: Full Dispo: Home, ~1-2 days Pending converts to normal sinus rhythm / cardiac recs
[2024-02-07 08:51] VITALS: O2SAT 99
[2024-02-07] MEDS: POTASS/SODIUM PHOSPHATE 1 PKT POWD.PACK PO SCH (09:00)
[2024-02-07 12:47] VITALS: BP 123/55; TEMP 97.7
--- NOTE | 2024-02-07 13:55 | P.PN ---
Subjective Date of Service: 02/07/24 Chief Complaint: Afib W RVR Subjective: No new changes Review of Systems 10-point ROS is otherwise unremarkable Physical Examination - Vital Signs Temperature: 97.7 F Blood Pressure: 123/55 Pulse: 62 Respirations: 16 Pulse Ox (%): 100 - Physical Exam General: Alert HEENT: Atraumatic Neck: Supple Respiratory: Clear to auscultation bilaterally Cardiovascular: No edema, Irregular heart rate/rhythm Gastrointestinal: Normal bowel sounds Assessment And Plan - Current Problems (Diagnosis) (1) Atrial fibrillation with RVR Current Visit: Yes Status: Acute Plan: Patient failed LATRICE DCCV Continue Amiodarone 200 mg po BID Continue Dioxin 125 mcg daily. Continue Metoprolol to 50 mg po BID. continue Eliquis. (2) CHF (congestive heart failure) Current Visit: Yes Status: Acute Plan: appears euvolemic on exam, continue metoprolol and lasix. (3) Hypertension Current Visit: Yes Status: Acute Plan: better controlled, continue current medications.
--- NOTE | 2024-02-07 16:57 | EKG ---
Test Date: 2024-02-04 Test Time: 12:35:22 Security Officer: LEANDRO MEASUREMENT RESULTS: Intervals: Rate: 52 NM: 148 QRSD: 90 QT: 472 QTc: 438 [place]: P: 37 NM: 148 QRS: 73 T: 107 INTERPRETIVE STATEMENTS: Sinus bradycardia Nonspecific ST and T wave abnormality Abnormal ECG Compared to ECG 01/31/2024 22:27:45 ST (T wave) deviation now present Atrial fibrillation no longer present Myocardial infarct finding no longer present Electronically Signed On 02-07-24 16:45:49 CDT by Andrade Longo
--- NOTE | 2024-02-07 17:14 | EKG ---
Test Date: 2024-01-31 Test Time: 22:27:45 Element Setter: FABIAN MEASUREMENT RESULTS: Intervals: Rate: 154 NM: QRSD: 78 QT: 322 QTc: 515 [place]: P: NM: QRS: 63 T: 2 INTERPRETIVE STATEMENTS: Atrial fibrillation Anterior infarct, age undetermined Abnormal ECG Compared to ECG 01/31/2024 22:26:45 Myocardial infarct finding now present ST (T wave) deviation no longer present Electronically Signed On 02-07-24 16:50:32 CDT by Andrade Longo
--- NOTE | 2024-02-07 17:14 | EKG ---
Test Date: 2024-01-31 Test Time: 22:26:45 Senior Counsel: FABIAN MEASUREMENT RESULTS: Intervals: Rate: 154 [place]: QRSD: 76 QT: 268 QTc: 429 [place]: P: [place]: QRS: 64 T: 23 INTERPRETIVE STATEMENTS: Atrial fibrillation Nonspecific ST abnormality, probably digitalis effect Abnormal ECG Compared to ECG 09/22/2021 14:02:43 ST (T wave) deviation now present Sinus bradycardia no longer present Electronically Signed On 02-07-24 16:50:35 CDT by Andrade Longo
--- NOTE | 2024-02-07 18:49 | PN ---
Date of Progress Note: 02/07/2024 Subjective: The patient was admitted to the hospital with electrolyte imbalance, atrial fibrillation with RVR. The patient was found to have hyponatremia. The patient was started on hydration, IV fluid has been discontinued for the last 48 hours. Sodium continued to be stable. Physical Examination: Vital Signs: When I saw the patient, blood pressure 123/55, pulse of 62, afebrile. Chest: Clear to auscultation. Heart: S1, S2. Systolic murmur. Abdomen: Soft, nontender. Extremities: No edema. Neurologic: Alert. No focality. Lab Data: Hemoglobin 10.5. Sodium 132, potassium 4, bicarb 28, BUN 7, creatinine 0.7. Calcium 8.3, phosphorus 2.2, magnesium 1.9, albumin of 3. Current Medications: The patient is on include albuterol, Eliquis, ferrous sulfate, calcium carbonate, amiodarone, atorvastatin, colestipol, digoxin, losartan 100, metoprolol 50 b.i.d., zinc sulfate, Reglan, Zofran, pantoprazole, levothyroxine. Assessment And Plan: 1. Hyponatremia secondary to depletional, recovered, off IV fluid. Keep holding IV fluid. We will continue to monitor the patient. 2. Hypokalemia and hypomagnesemia, resolved. Off supplement. 3. Atrial fibrillation with rapid ventricular response, as by Primary. 4. Hypertension, controlled, optimal. Continue current treatment. Please avoid any diuresis for the time, especially hydrochlorothiazide. The patient cleared from the Renal standpoint for discharge planning. Follow up in the office in 2 to 3 weeks. Time spent examining the patient [id number], reviewing data, lab and radiology, placing order, discussing the case with the patient, discussing the case with the food court team member including hospitalist and nursing staff with the dialysis nurse more than 35 minutes JAILENE Voice ID: [id number] Report ID: [id number] MTDD
--- NOTE | 2024-02-07 20:28 | P.DS ---
Admission Date: 02/01/24 Discharge Date: 02/07/24 Disposition: ROUTINE DISCHARGE Discharge Condition: GOOD Reason for Admission: Afib W RVR Consultations: Cardiology - Dr. Longo / Dr. Grace Nephrology - Dr. Burk / Dr. Shannon Brief History of Present Illness: 74yo F, PMH: hypertension, hyperlipidemia, hypothyroidism, history of atrial fibrillation status post watchman's procedure 3 years ago Patient came to the ER with high heart rate and generalized weakness and shortness of breath which has been going on for last 2 to 3 days and has been progressively getting worse today and was brought to ER. Patient denies any chest pain but complains of shortness of breath especially with minimal exertion. Has persistent cough which has been going on for the last 1 year. No expectoration. No nausea vomiting or diarrhea. Denies any fever or chills. Not on any blood thinners. Patient also complains of palpitation and her heart rate has been running high. Patient was assessed in the ER and was found to have atrial fibrillation with RVR and also possible CHF. He was initially responded to Cardizem and was started on Cardizem drip and was admitted for further management. Hospital Course: Problem List: Atrial fibrillation with RVR, s/p cardioversion (02/03) Acute on chronic CHF exacerbation; HFpEF RAYRAY, resolved Hyponatremia Hypertension Hyperlipidemia Hypothyroidism Physician Discharge Instructions: Patient presened with dyspnea, weakness, elevated heart rate and was found to be in Atrial fibrillation with RVR. Troponins were negative. BNP was 2k. CT dissection without evidence of PE, only noted mild cardiomegaly and incidental findings including small bilateral layering pleural effusions, Peripheral Left upper lobe 7mm granuloma, mild colonic diverticulosis. Patient was evaluated by cardiology and was started on a a cardizem drip, and then subsequently switched to sotalol then amio drip, however patient remained in a-fib. Patient had LATRICE guided cardioversion on 02/03 and successfully converted into sinus rhythm, however ultimately failed as she converted back into a-fib a few hours after cardioversion during the night. Discussed with cardio who recommended loading up patient with digoxin, increasing metoprolol to 50 mg BID from 25, and starting amiodarone 200 mg BID. Heart rate improved and was rate controlled in 80s after starting new medications but remained in a-fib. Digoxin level was obtained after loading doses, and was 1.5. She will follow up in the office Discussed with cardiology who recommended outpatient follow up for further management and to discuss need for possible cardiac ablation down the road in the near future. Patient was feeling better, dyspnea resolved, heart rate improved, and was deemed stable for discharge. Follow up with cardiology next week, repeat digoxin level at that time. During her hospitalization, patient was noted to be hyponatremic with sodium of 130 on admission and worsened over next 2-3 days. Nephrology was consulted. Suspect hyponatremia secondary to depletion with IV lasix/hydrochlorothiazide and low PO intake due to nausea. Sodium improved with urea Na and holding IV lasix/HCTZ. Advised patient to continue to hold home losartan/hctz for now. Blood pressure was normotensive to mildly hypertensive on losartan without hctz combo pill. Advised to check blood pressure aroudn the same time each day. Keep daily diary of blood pressure readings to take to follow up appointment in case adjustments of antihypertensives are needed. Medications: Eliquis 5 mg twice daily metoprolol increased to 50 mg twice daily amiodarone 200 mg twice daily Digoxin 125 mcg daily Stop Losartan/hydrochlorothiazide - replaced with losartan 100mg daily - stopped HCTZ component due to hyponatremia Follow up: PCP 3-5 days Cardiology next week Physical Exam: GEN: Alert, oriented, NAD HEENT: Normal conjunctiva, sclera anicteric CV: irregularly irregular rhythm, no edema Pulm: Nonlabored respirations on room air, clear bilaterrally ABD: Soft, nontender, nondistended Neuro: Normal speech, normal affect Vital Signs/Physical Exam: Temp Pulse Resp BP Pulse Ox 97.7 F 62 16 123/55 L 100 02/07/24 13:54 02/07/24 13:54 02/07/24 13:54 02/07/24 13:54 02/07/24 13:54 Laboratory Data at Discharge: WBC 8.10 thou/uL (4.3-10.9) 02/06/24 03:17 Hgb 10.5 g/dL (12.0-15.0) L 02/06/24 03:17 Hct 31.1 % (36.0-45.0) L 02/06/24 03:17 Plt Count 211 thou/uL (152-406) 02/06/24 03:17 PT 22.3 SECONDS (9.5-12.5) H 02/04/24 10:44 INR 2.07 02/04/24 10:44 APTT 35.7 SECONDS (24.3-36.9) 02/04/24 10:44 Sodium 132 mEq/L (136-145) L 02/07/24 02:58 Potassium 4.0 mEq/L (3.5-5.1) D 02/07/24 02:58 BUN 7 mg/dL (7-18) 02/07/24 02:58 Creatinine 0.74 mg/dL (0.55-1.02) 02/07/24 02:58 Glucose 88 mg/dL (74-106) 02/07/24 02:58 Uric Acid 4.4 mg/dL (2.6-6.0) 02/04/24 04:16 Phosphorus 2.2 mg/dL (2.5-4.9) L 02/07/24 02:58 Magnesium 1.9 mg/dL (1.6-2.4) 02/07/24 02:58 Total Bilirubin 0.8 mg/dL (0.2-1.0) 02/02/24 04:25 AST 25 U/L (15-37) 02/02/24 04:25 ALT 27 U/L (13-56) 02/02/24 04:25 Alkaline Phosphatase 79 U/L (45-117) 02/02/24 04:25 Home Medications: RX: Aspirin [Aspirin EC] 81 mg PO DAILY 09/22/21 RX: Atorvastatin Calcium [Lipitor*] 10 mg PO BEDTIME 09/22/21 RX: Levothyroxine Sodium 50 mcg PO DAILY 09/22/21 RX: Multivitamin 1 tab PO DAILY 09/22/21 RX: Calcium Carbonate/Vitamin D3 [Calcium 600-Vit D3 200 Tablet] 1 each PO DAILY 02/01/24 RX: Cholecalciferol (Vitamin D3) [D3-5000] 125 mcg PO DAILY 02/01/24 RX: Colestipol HCl [Colestid] 1 gm PO DAILY 02/01/24 RX: Famotidine 40 mg PO BEDTIME 02/01/24 RX: Iron 65 mg PO DAILY 02/01/24 RX: Magnesium Oxide [Magnesium] 500 mg PO DAILY 02/01/24 RX: Montelukast [Singulair*] 10 mg PO DAILY 02/01/24 RX: Pantoprazole [Protonix Tab*] 40 mg PO DIRECTED 02/01/24 RX: Zinc Gluconate [Zinc] 50 mg PO DAILY 02/01/24 Metoprolol Tartrate [Lopressor] 50 mg PO BID 30 Days #60 tab 02/07/24 RX: Amiodarone HCl [Cordarone*] 200 mg PO BID 30 Days #60 tab 02/07/24 RX: Apixaban [Eliquis] 5 mg PO BID 30 Days #60 tab 02/07/24 RX: Digoxin [Lanoxin*] 0.125 mg PO DAILY 30 Days #30 tab 02/07/24 RX: Losartan Potassium 100 mg PO DAILY 30 Days #30 tab 02/07/24 New Medications: RX: Amiodarone HCl [Cordarone*] 200 mg PO BID 30 Days #60 tab RX: Apixaban [Eliquis] 5 mg PO BID 30 Days #60 tab RX: Digoxin [Lanoxin*] 0.125 mg PO DAILY 30 Days #30 tab Metoprolol Tartrate [Lopressor] 50 mg PO BID 30 Days #60 tab RX: Losartan Potassium 100 mg PO DAILY 30 Days #30 tab Physician Discharge Instructions: Physician Discharge Instructions: Patient presened with dyspnea, weakness, elevated heart rate and was found to be in Atrial fibrillation with RVR. Troponins were negative. BNP was 2k. CT dissection without evidence of PE, only noted mild cardiomegaly and incidental findings including small bilateral layering pleural effusions, Peripheral Left upper lobe 7mm granuloma, mild colonic diverticulosis. Patient was evaluated by cardiology and was started on a a cardizem drip, and then subsequently switched to sotalol then amio drip, however patient remained in a-fib. Patient had LATRICE guided cardioversion on 02/03 and successfully converted into sinus rhythm, however ultimately failed as she converted back into a-fib a few hours after cardioversion during the night. Discussed with cardio who recommended loading up patient with digoxin, increasing metoprolol to 50 mg BID from 25, and starting amiodarone 200 mg BID. Heart rate improved and was rate controlled in 80s after starting new medications but remained in a-fib. Digoxin level was obtained after loading doses, and was 1.5. She will follow up in the office Discussed with cardiology who recommended outpatient follow up for further management and to discuss need for possible cardiac ablation down the road in the near future. Patient was feeling better, dyspnea resolved, heart rate improved, and was deemed stable for discharge. Follow up with cardiology next week, repeat digoxin level at that time. During her hospitalization, patient was noted to be hyponatremic with sodium of 130 on admission and worsened over next 2-3 days. Nephrology was consulted. Suspect hyponatremia secondary to depletion with IV lasix/hydrochlorothiazide and low PO intake due to nausea. Sodium improved with urea Na and holding IV lasix/HCTZ. Advised patient to continue to hold home losartan/hctz for now. Blood pressure was normotensive to mildly hypertensive on losartan without hctz combo pill. Advised to check blood pressure aroudn the same time each day. Keep daily diary of blood pressure readings to take to follow up appointment in case adjustments of antihypertensives are needed. Medications: Eliquis 5 mg twice daily metoprolol increased to 50 mg twice daily amiodarone 200 mg twice daily Digoxin 125 mcg daily Stop Losartan/hydrochlorothiazide - replaced with losartan 100mg daily - stopped HCTZ component due to hyponatremia Follow up: PCP 3-5 days Cardiology next week Followup: Marisabel Chi FNP [Primary Care Provider] - Time spent managing pt's care (in minutes): 45
== END 2024-02-07 15:35 | disposition home or self-care (01) | DRG 308 ==
LOC: ER 21:56 → ERHOLD 02-01 00:44 → 3RD-ICU 02-01 17:25 → 2ND 02-04 16:30
PROVIDERS: ADMIT Family Medicine; ATTEND Hospitalist
PROC: 5A2204Z Restoration of Cardiac Rhythm, Single (ICD-10-PCS; principal; 2024-02-04)
PROC: B24BZZ4 Ultrasonography of Heart with Aorta, Transesophageal (ICD-10-PCS; 2024-02-04)
DX: I48.91 Unspecified atrial fibrillation (principal); I50.33 Acute on chronic diastolic (congestive) heart failure; E87.1 Hypo-osmolality and hyponatremia; N17.9 Acute kidney failure, unspecified; I11.0 Hypertensive heart disease with heart failure; D64.9 Anemia, unspecified; E78.5 Hyperlipidemia, unspecified; E87.6 Hypokalemia; E83.42 Hypomagnesemia; E03.9 Hypothyroidism, unspecified; K21.9 Gastro-esophageal reflux disease without esophagitis; R11.0 Nausea; T46.2X5A Adverse effect of other antidysrhythmic drugs, initial encounter; Z88.8 Allergy status to other drugs, medicaments and biological substances; Z79.01 Long term (current) use of anticoagulants; Z79.82 Long term (current) use of aspirin; Z79.890 Hormone replacement therapy; Z79.899 Other long term (current) drug therapy
CPT/HCPCS: 36415; 71045; 71275; 74175; 76770; 80048; 80053; 80069; 80162; 81001; 81003; 82533; 82570; 83735; 83880; 83930; 83935; 84100; 84132; 84300; 84443; 84484; 84550; 85025; 85027; 85610; 85730; 92960; 93005; 93312; 94640; 94760; 96365; 96375; 99285; C9113; J0282; J1160; J1650; J1940; J2405; J2704; J2765; J3475; J3480; J7030; J7040; J7060; J7613; J7644; Q9967